=== PATIENT | male | born 1950 ===

== ENCOUNTER 2024-06-19 04:50 | Inpatient (IN) | payer MEDICARE, OTHER ==
--- NOTE | 2024-06-19 05:18 | ERPHSYRPT ---
- History of Present Illness Source: EMS Exam Limitations: other (pt non-verbal) Timing/Duration: day(s) (3) Activities at Onset: none Severity of Dyspnea-Max: mild Severity of Dyspnea-Current: mild Possible Cause: chronic episodes Associated Symptoms: constant, cough, wheezing, No chest pain/discomfort, No ankle swelling, No leg swelling <MAXINE CLARK - Last Filed: 06/19/24 06:55> <JOEY GUZMAN - Last Filed: 06/19/24 09:03> - History of Present Illness Time Seen by Provider: 06/19/24 05:15 Physician History: 73yo m [facility] dysp[facility]. EMS reports jail staff state he has been increasingly sob for the past 3-4d. Pt is minimally verbal at baseline 2/2 hx of multiple strokes. longterm reportedly has concerns for aspiration. Pt will follow commands but is intermittently combative w/ staff. Pt is flaccid on right upper extremity at baseline. Pt communicates minimally w/ grunts/groans but no meaningful speech. (MAXINE CLARK) Allergies/Adverse Reactions: No Known Drug Allergies Allergy (Unverified 06/19/24 05:36) Home Medications: Acetaminophen 500 mg [Tylenol Extra Strength 500 mg] 1,000 mg PO Q6HPRN PRN 06/19/24 [History] Acetaminophen 500 mg [Tylenol Extra Strength 500 mg] 1,000 mg PO Q6HPRN PRN 06/19/24 [History] Allopurinol 100 mg [Zyloprim 100 mg] 100 mg PO DAILY 06/19/24 [History] Bisacodyl [Laxative Suppository] 10 mg RC DAILY PRN 06/19/24 [History] Butenafine HCl 1 applic TP DAILY 06/19/24 [History] Dantrolene Sodium 25 mg PO TID 06/19/24 [History] Docusate Sodium 100 mg [Docusate Sodium 100 MG] 100 mg PO BID 06/19/24 [History] Emollient Combination No.119 [Eucerin Advanced Repair] 1 applic TP BID 06/19/24 [History] Gabapentin 600 mg PO TID 06/19/24 [History] Ketoconazole Cream [Nizoral CREAM] 1 applic TOP UD 06/19/24 [History] LORazepam [Lorazepam] 0.5 mg PO BID 06/19/24 [History] Loperamide HCl 2 mg [Imodium 2 mg] 2 mg PO UD PRN 06/19/24 [History] Magnesium Hydroxide [Milk of Magnesia] 400 mg PO DAILY PRN 06/19/24 [History] Magnesium Oxide 400 mg [Mag-Ox 400] 400 mg PO BID 06/19/24 [History] Melatonin 6 mg PO HS PRN PRN 06/19/24 [History] Metoclopramide HCl 5 mg PO BID 06/19/24 [History] Metoprolol Tartrate 25 mg [Lopressor 25MG Tab] 25 mg PO BID 06/19/24 [Hi story] Ondansetron [Ondansetron Odt] 8 mg PO Q8HPRN PRN 06/19/24 [History] Sodium Phosphate,Candler-Dibasic [Fleet Enema] 133 ml RC DAILY PRN 06/19/24 [History] Tramadol HCl 50 mg [Ultram 50 mg] 50 mg PO Q8HPRN PRN 06/19/24 [History] polyethylene glycoL 3350 [Polyethylene Glycol 3350] 17 gr PO DAILY 06/19/24 [History] - Review of Systems Constitutional: No Symptoms Respiratory: Cough, Dyspnea, Wheezing, No Stridor Cardiac: No Chest Pain, No Edema, No Syncope Abdominal/Gastrointestinal: No Vomiting, No Diarrhea Neurological: Focal Weakness (right UE flaccid at baseline) <MAXINE CLARK - Last Filed: 06/19/24 06:55> - Physical Exam General Appearance: no apparent distress, alert Respiratory Exam: airway intact, diminished breath sounds (b/l), wheezing (b/l upper ), No chest tenderness, No respiratory distress, No crackles/rales, No stridor Cardiovascular/Chest Exam: normal peripheral pulses, other (irregular rate, regular rhythm), No murmur Abdominal/Gastrointestinal Exam: soft, normal bowel sounds, No tenderness, No distention Neurologic Exam: alert, motor deficits (right UE and LE flacid paralysis at baseline), agitation SpO2 Interpretation: normal SpO2: 97 O2 Delivery: Nasal Cannula (3L) <AMBERMAXINE MAGDA - Last Filed: 06/19/24 06:55> - Nursing Vital Signs Nursing Vital Signs: Initial Vital Signs O2 Sat by Pulse Oximetry 92 L 06/19/24 05:01 - Course EKG Interpreted by Me: RATE (58), A-fib, Right Bundle Branch Block, Non-specific ST Changes (not suggestive of acute ischemia) <MAXINE CLARK MAGDA - Last Filed: 06/19/24 06:55> - Course Rhythm Strip: Normal Sinus Rhythm - Radiology Exams Chest X-ray Interpretation: Interpreted by me, Reviewed by me, No Infiltrates (COPD changes) <JOEY GUZMAN - Last Filed: 06/19/24 09:03> Ordered Tests: Active Orders 24 hr Category Date Time Status EKG-ER Only STAT Care 06/19/24 05:15 Active Oxygen-ED Only Nasal Cannula 2 lpm Care 06/19/24 05:15 Active CHEST 1 VIEW (PORTABLE) Stat Exams 06/19/24 05:17 Completed ARTERIAL BLOOD GASES Stat Lab 06/19/24 05:15 Completed BLOOD CULTURE Stat Lab 06/19/24 06:22 Received CBC W DIFF Stat Lab 06/19/24 06:10 Completed CMP Stat Lab 06/19/24 06:10 Completed Lactic Acid Stat Lab 06/19/24 05:15 Completed Lactic Acid Stat Lab 06/19/24 08:09 Received PROCALCITONIN Stat Lab 06/19/24 06:10 Completed TROPONIN Q4H Lab 06/19/24 06:10 Completed TROPONIN Q4H Lab 06/19/24 10:00 Ordered TROPONIN Q4H Lab 06/19/24 14:00 Ordered UA W/RFX UR CULTURE Stat Lab 06/19/24 05:16 Ordered Respiratory Therapy Assessment DAILY RT 06/19/24 06:01 Active Medication Summary Generic Name Dose Route Start Last Admin Trade Name Freq PRN Reason Stop Dose Admin Doxycycline Hyclate 100 mg/ 100 mls @ 100 mls/hr 06/19/24 10:00 06/19/24 07:47 Dextrose IV 07/19/24 09:59 100 mls/hr Q12HT FANNY Administration Lactated Ringer's 1,000 mls @ 999 mls/hr 06/19/24 08:59 Lactated Ringers IV 06/19/24 09:59 .Q1H1M ONE Discontinued Medications Generic Name Dose Route Start Last Admin Trade Name Duq PRN Reason Stop Dose Admin Albuterol/Ipratropium 3 ml 06/19/24 05:15 06/19/24 05:26 Ipratropium/Albuterol Sulfate 3 Ml Ampul.Neb IH 06/19/24 05:16 3 ml STAT ONE Administration Albuterol/Ipratropium Confirm 06/19/24 05:22 Ipratropium/Albuterol Sulfate 3 Ml Ampul.Neb Administered 06/19/24 05:23 Dose 3 ml IH .STK-MED ONE Cefepime HCl Confirm 06/19/24 07:01 Cefepime Hcl 1 Gm Vial Administered 06/19/24 07:02 Dose 1 g .ROUTE .STK-MED ONE Methylprednisolone Sodium 0 mg 06/19/24 05:15 06/19/24 05:39 Succinate 125 mg/ Sterile IV 06/19/24 05:16 125 mg Water 2 ml STAT ONE Administration Doxycycline Hyclate Confirm 06/19/24 07:41 Doxycycline Hyclate 100 Mg/Vial Injection Administered 06/19/24 07:42 Dose 100 mg IV .STK-MED ONE Haloperidol Lactate 2 mg 06/19/24 05:40 06/19/24 05:55 Haloperidol Lactate 5 Mg/Ml Vial IV 06/19/24 05:41 2 mg STAT ONE Administration Haloperidol Lactate Confirm 06/19/24 05:55 Haloperidol Lactate 5 Mg/Ml Vial Administered 06/19/24 05:56 Dose 5 mg .ROUTE .STK-MED ONE Sodium Chloride 1,000 mls @ 999 mls/hr 06/19/24 05:15 06/19/24 07:19 Sodium Chloride 0.9% 1000 Ml IV 06/19/24 06:15 Infused .Q1H1M STA Infusion Acetaminophen 1,000 mg in 100 mls @ 400 mls/hr 06/19/24 05:36 06/19/24 05:39 Ofirmev IV 06/19/24 05:50 400 mls/hr 1HRPRIOR ONE Administration Acetaminophen Confirm 06/19/24 05:38 Ofirmev Administered 06/19/24 05:39 Dose 100 mls @ ud IV .STK-MED ONE Sodium Chloride Confirm 06/19/24 05:38 Sodium Chloride 0.9% 1000 Ml Administered 06/19/24 05:39 Dose 1,000 mls @ ud .ROUTE .STK-MED ONE Cefepime HCl 1 g/ Sodium 100 mls @ 200 mls/hr 06/19/24 06:44 06/19/24 07:02 Chloride IV 06/19/24 07:13 200 mls/hr STAT STA Administration Sodium Chloride Confirm 06/19/24 07:01 Sodium Chloride 0.9% Administered 06/19/24 07:02 Dose 100 mls @ ud .ROUTE .STK-MED ONE Dextrose Confirm 06/19/24 07:41 D5w 100ml Mini Bag 100 Ml Administered 06/19/24 07:42 Dose 100 mls @ ud IV .STK-MED ONE Methylprednisolone Sodium Succinate Confirm 06/19/24 05:38 Methylprednis Sod Succ 125 Mg/2 Ml Vial Administered 06/19/24 05:39 Dose 125 mg .ROUTE .STK-MED ONE Sterile Water Confirm 06/19/24 05:38 Water For Injection,Sterile 10 Ml Vial Administered 06/19/24 05:39 Dose 10 ml IJ .STK-MED ONE Lab/Rad Data: Laboratory Result Diagrams 06/19/24 06:10 06/19/24 06:10 Laboratory Results 06/19/24 06/19/24 06/19/24 Range/Units 06:10 06:10 06:10 WBC (4.23-9.07) x10^3/uL RBC (4.63-6.08) x10^6/uL Hgb (13.7-17.5) g/dL Hct (40.1-51.0) % MCV (79.0-92.2) fL MCH (25.7-32.2) pg MCHC (32.3-36.5) g/dL RDW (11.6-14.4) % Plt Count (163-337) x10^3/uL MPV (9.4-12.4) fL Gran % (34.0-67.9) % Immature Gran % (Auto) (0.001-0.429) % Nucleat RBC Rel Count (0.00-0.2) % Eos # (Auto) (0.04-0.54) x10^3/uL Immature Gran # (Auto) (0.001-0.031) x10^3u/L Absolute Lymphs (auto) (1.32-3.57) x10^3/uL Absolute Monos (auto) (0.30-0.82) x10^3/uL Absolute Nucleated RBC (0.00-0.012) x10^3u/L Lymphocytes % (21.8-53.1) % Monocytes % (5.3-12.2) % Eosinophils % (0.8-7.0) % Basophils % (0.2-1.2) % Absolute Granulocytes (1.78-5.38) x10^3/uL Basophils # (0.01-0.08) x10^3/uL Puncture Site pCO2 (35-45) mmHg pO2 (75-100) mmHg Base Excess (-2.0-2.0) O2 Saturation (94-100) g/dF ABG pH (7.35-7.45) ABG HCO3 (22-28) ABG O2 Sat (Measured) (95-100) % Ozzie Test Hemoglobin Carboxyhemoglobin (0.0-6.9) % THgb Methemoglobin (1.4-1.5) % Potassium (3.5-5.1) Temperature C POC O2 Flow Rate % Sodium (135-145) mmol/L Chloride (98-107) mmol/L Carbon Dioxide (22-30) mmol/L Anion Gap (5-15) MEQ/L BUN (9-20) mg/dL Creatinine (0.66-1.25) mg/dL Estimated GFR ML/MIN Glucose (74-106) mg/dL Lactic Acid (0.4-2.0) Calcium (8.4-10.2) mg/dL Total Bilirubin (0.2-1.3) mg/dL AST (17-59) U/L ALT (0-50) U/L Alkaline Phosphatase (38-126) U/L Troponin I 0.018 (0.000-0.033) ng/mL Serum Total Protein (6.3-8.2) g/dL Albumin (3.5-5.0) g/dL Procalcitonin 23.600 H* (0.030-0.080) ng/mL Influenza Type A Ag NEGATIVE (NEGATIVE) Influenza Type B Ag NEGATIVE (NEGATIVE) RSV (PCR) NEGATIVE (NEGATIVE) SARS-CoV-2 (PCR) NEGATIVE (NEGATIVE) 06/19/24 06/19/24 06/19/24 Range/Units 06:10 06:10 05:15 WBC 8.2 (4.23-9.07) x10^3/uL RBC 3.97 L (4.63-6.08) x10^6/uL Hgb 11.8 L (13.7-17.5) g/dL Hct 37.6 L (40.1-51.0) % MCV 94.7 H (79.0-92.2) fL MCH 29.7 (25.7-32.2) pg MCHC 31.4 L (32.3-36.5) g/dL RDW 14.4 (11.6-14.4) % Plt Count 142 L (163-337) x10^3/uL MPV 11.4 (9.4-12.4) fL Gran % 90.1 H (34.0-67.9) % Immature Gran % (Auto) 0.4 (0.001-0.429) % Nucleat RBC Rel Count 0.0 (0.00-0.2) % Eos # (Auto) 0.05 (0.04-0.54) x10^3/uL Immature Gran # (Auto) 0.03 (0.001-0.031) x10^3u/L Absolute Lymphs (auto) 0.27 L (1.32-3.57) x10^3/uL Absolute Monos (auto) 0.44 (0.30-0.82) x10^3/uL Absolute Nucleated RBC 0.00 (0.00-0.012) x10^3u/L Lymphocytes % 3.3 L (21.8-53.1) % Monocytes % 5.4 (5.3-12.2) % Eosinophils % 0.6 L (0.8-7.0) % Basophils % 0.2 (0.2-1.2) % Absolute Granulocytes 7.35 H (1.78-5.38) x10^3/uL Basophils # 0.02 (0.01-0.08) x10^3/uL Puncture Site LBA pCO2 38 (35-45) mmHg pO2 39 L* (75-100) mmHg Base Excess 4.6 H (-2.0-2.0) O2 Saturation 70.7 L (94-100) g/dF ABG pH 7.48 H (7.35-7.45) ABG HCO3 28.3 H (22-28) ABG O2 Sat (Measured) 75.1 L (95-100) % Ozzie Test yes Hemoglobin 12.4 Carboxyhemoglobin 5.2 (0.0-6.9) % THgb Methemoglobin 0.7 L (1.4-1.5) % Potassium 4.5 4.9 (3.5-5.1) Temperature 37.0 C POC O2 Flow Rate 28 % Sodium 137 (135-145) mmol/L Chloride 103 (98-107) mmol/L Carbon Dioxide 27 (22-30) mmol/L Anion Gap 11.8 (5-15) MEQ/L BUN 32 H (9-20) mg/dL Creatinine 1.32 H (0.66-1.25) mg/dL Estimated GFR 56.6 ML/MIN Glucose 127 H (74-106) mg/dL Lactic Acid 2.2 H (0.4-2.0) Calcium 8.8 (8.4-10.2) mg/dL Total Bilirubin 0.60 (0.2-1.3) mg/dL AST 61 H (17-59) U/L ALT 86 H (0-50) U/L Alkaline Phosphatase 180 H (38-126) U/L Troponin I (0.000-0.033) ng/mL Serum Total Protein 7.1 (6.3-8.2) g/dL Albumin 3.6 (3.5-5.0) g/dL Procalcitonin (0.030-0.080) ng/mL Influenza Type A Ag (NEGATIVE) Influenza Type B Ag (NEGATIVE) RSV (PCR) (NEGATIVE) SARS-CoV-2 (PCR) (NEGATIVE) - Progress Progress: re-examined Air Movement: fair Blood Culture(s) Obtained: Yes <MAXINE CLARK - Last Filed: 06/19/24 06:55> - Progress Antibiotics given: Yes Discussed with DrAdam: Other (Dr Donato) Will see patient in: hospital (full admit) <JOEY GUZMAN - Last Filed: 06/19/24 09:03> - Progress Progress Note: 06/19/24 06:55 I discussed pt presentation w/ Dr Guzman who will assume care at 0700 (MAXINE CLARK) Medical Desision Making - Diagnostic Testing Diagnostic test were ordered, analyzed, and reviewed by me: Yes Radiological Interpretation: Interpreted by me, Reviewed by me <MAXINE CLARK - Last Filed: 06/19/24 06:55> - Risk of complications The pt has a high risk of morbidity or mortality based on: Decision regarding hospitilization or escalation of hosp level of care <JOEY GUZMAN - Last Filed: 06/19/24 09:03> - Departure Critical Care Time: No <MAXINE CLARK - Last Filed: 06/19/24 06:55> - Departure Departure Disposition: In-patient Admission Critical Care Time: Yes Critical Care Time(excluding separately billable procedures): Critical 30-74 mins <JEOY GUZMAN - Last Filed: 06/19/24 09:03> - Departure Clinical Impression: Dyspnea Qualifiers: Dyspnea type: shortness of breath Qualified Code(s): R06.02 - Shortness of breath; R06.00 - Dyspnea, unspecified; R06.01 - Orthopnea Aspiration pneumonia due to gastric secretions Qualifiers: Laterality: unspecified laterality Lung location: unspecified part of lung Qualified Code(s): J69.0 - Pneumonitis due to inhalation of food and vomit Aspiration pneumonia due to food (regurgitated) Qualifiers: Laterality: unspecified laterality Lung location: unspecified part of lung Qualified Code(s): J69.0 - Pneumonitis due to inhalation of food and vomit Condition: Stable Referrals: DOCTOR,NO FAMILY [Primary Care Provider] - Follow up/PCP as directed
[2024-06-19] MEDS ORDERED: DUONEB 0.5-3 MG/3 ml Neb IH ONE (05:22)
[2024-06-19] MEDS: DUONEB 0.5-3 MG/3 ml Neb IH ONE (05:26)
[2024-06-19] MEDS ORDERED: Sodium Chloride 0.9% 1000 ML 1,000 ML ONE (05:38)
[2024-06-19] MEDS ORDERED: Sterile H2O 10 ml IJ ONE (05:38)
[2024-06-19] MEDS ORDERED: OFIRMEV 100 ML IV ONE (05:38)
[2024-06-19] MEDS ORDERED: solu-MEDROL ONE (05:38)
[2024-06-19] MEDS: solu-MEDROL 125 MG, Sterile H2O 10 ml 2 ML IV ONE (05:39)
[2024-06-19] MEDS: OFIRMEV 1,000 MG/100 ML ML IV ONE (05:39)
[2024-06-19] MEDS: Sodium Chloride 0.9% 1000 ML 1,000 ML IV STA (05:40)
[2024-06-19 05:54] LABS: Absolute Neutrophil Ct (ANC) 7.35 x10^3/uL (1.78-5.38); BASOPHIL % 0.2 % (0.2-1.2); Basophil (Absolute #) 0.02 x10^3/uL (0.01-0.08); Eosinophil % 0.6 % (0.8-7.0); Eosinophil (Absolute #) 0.05 x10^3/uL (0.04-0.54); Hematocrit 37.6 % (40.1-51.0); Hemoglobin 11.8 g/dL (13.7-17.5); IMMATURE GRAN # 0.03 x10^3u/L (0.001-0.031); IMMATURE GRAN % 0.4 % (0.001-0.429); Lymphocyte (Absolute #) 0.27 x10^3/uL (1.32-3.57); Lymphocytes % 3.3 % (21.8-53.1); Mean Cell Volume 94.7 fL (79.0-92.2); Mean Corpuscular Hemoglobin 29.7 pg (25.7-32.2); Mean Corpuscular Hgb Concent. 31.4 g/dL (32.3-36.5); Mean Platelet Volume 11.4 fL (9.4-12.4); Monocyte (Absolute #) 0.44 x10^3/uL (0.30-0.82); Monocytes % 5.4 % (5.3-12.2); Neutrophil % 90.1 % (34.0-67.9); Platelet Count 142 x10^3/uL (163-337); Red Blood Count 3.97 x10^6/uL (4.63-6.08); Red Cell Distribution Width 14.4 % (11.6-14.4); White Blood Count 8.2 x10^3/uL (4.23-9.07)
[2024-06-19] MEDS: Haldol 5 MG IV ONE (05:55)
[2024-06-19] MEDS ORDERED: Haldol 5 MG ONE (05:55)
[2024-06-19 06:07] LABS: ABG HEMOGLOBIN 12.4; ABG POTASSIUM 4.9 (3.5-5.1); ARTERIAL BLD GAS O2 SATURATION 75.1 % (95-100); ARTERIAL BLOOD GAS BASE EXCESS 4.6 (-2.0-2.0); ARTERIAL BLOOD GAS FIO2 28 %; ARTERIAL BLOOD GAS PCO2 38 mmHg (35-45); ARTERIAL BLOOD GAS pH 7.48 (7.35-7.45); CARBOXYHEMOGLOBIN 5.2 % THgb (0.0-6.9); HCO3- 28.3 (22-28); HGB O2 SAT 70.7 g/dF (94-100); Lactic Acid 2.2 (0.4-2.0); Methhemoglobin 0.7 % (1.4-1.5)
[2024-06-19 06:08] LABS: ARTERIAL BLOOD GAS PO2 39 mmHg (75-100)
[2024-06-19 06:09] LABS: ABG SITE LBA; ALLEN TEST OK? yes
[2024-06-19 06:17] LABS: ALBUMIN 3.6 g/dL (3.5-5.0); ANION GAP 11.8 MEQ/L (5-15); BILIRUBIN,TOTAL 0.6 mg/dL (0.2-1.3); Calcium 8.8 mg/dL (8.4-10.2); Creatinine 1 1.32 mg/dL (0.66-1.25); EST GLOMERULAR FILTRATION RATE 56.6 ML/MIN; Potassium 4.5 mmol/L (3.5-5.1); Total Protein 7.1 g/dL (6.3-8.2)
[2024-06-19 06:50] LABS: INFLUENZA A NEGATIVE (NEGATIVE); INFLUENZA B NEGATIVE (NEGATIVE); RESPIRATORY SYNCTIAL VIRUS NEGATIVE (NEGATIVE); SARS-CoV-2 Xpert Express NEGATIVE (NEGATIVE)
[2024-06-19] MEDS ORDERED: Sodium Chloride 0.9% 100 ML ONE (07:01)
[2024-06-19] MEDS ORDERED: MAXIPIME 1 GM ONE (07:01)
[2024-06-19] MEDS: MAXIPIME 1 GM** 1 G in Sodium Chloride 0.9% 100 ML IV STA (07:02)
[2024-06-19] MEDS ORDERED: D5w 100ML Mini Bag 100 ML 100 ML IV ONE (07:41)
[2024-06-19] MEDS ORDERED: VIBRAMYCIN 100 MG IV ONE (07:41)
[2024-06-19] MEDS: VIBRAMYCIN 100 MG*** 100 MG in Dextrose 5%/Water IV Soln. 100ML PLUS BAG 100 ML IV SCH ×2 (07:47→22:23)
--- NOTE | 2024-06-19 08:35 | XRAY ---
Indication: Short of breath. Comparison: None Portable chest demonstrates minimal bibasilar subsegmental atelectasis/scarring with mild right hemidiaphragm elevation. No focal infiltrate, consolidation, or large effusion. Heart not enlarged with arteriosclerotic and tortuous descending aorta. Bony thorax intact with osteopenia, mild/moderate multilevel degenerative spondylosis, mild levoscoliosis, and old bilateral rib fractures. Impression: Nonacute chest with chronic features.
[2024-06-19] MEDS ORDERED: Lactated Ringers 1,000 ML IV ONE (09:01)
[2024-06-19] MEDS: Lactated Ringers 1,000 ML IV ONE (09:03)
--- NOTE | 2024-06-19 12:39 | PCM.HP ---
History of Present Illness - Chief Complaint Chief Complaint: ASPIRATION PNEUMONIA Date: 06/19/24 History of Present Illness: is a 73 year old male admitted from local [facility]. The patient is nonverbal. History is obtained from charts and from ER provider. Apparently he was having dyspnea at the [facility]. He has had some cough. He has problems swallowing due to prior stroke. A G-tube was placed but the patient pulled it out multiple times and the POA decided to leave feeding tube out. He has had some hypoxia. No fever. The patient was combative when he came to ER. No other history available. - Review of Systems All Other Systems: Unable due to condition, Unable due to dementia Medications & Allergies Home Medications: Home Medication List Acetaminophen 500 mg [Tylenol Extra Strength 500 mg] 1,000 mg PO Q6HPRN PRN 06/19/24 [History Confirmed 06/19/24] Acetaminophen 500 mg [Tylenol Extra Strength 500 mg] 1,000 mg PO Q6HPRN PRN 06/19/24 [History Confirmed 06/19/24] Allopurinol 100 mg [Zyloprim 100 mg] 100 mg PO DAILY 06/19/24 [History Confirmed 06/19/24] Bisacodyl [Laxative Suppository] 10 mg RC DAILY PRN 06/19/24 [History Confirmed 06/19/24] Butenafine HCl 1 applic TP DAILY 06/19/24 [History Confirmed 06/19/24] Dantrolene Sodium 25 mg PO TID 06/19/24 [History Confirmed 06/19/24] Docusate Sodium 100 mg [Docusate Sodium 100 MG] 100 mg PO BID 06/19/24 [History Confirmed 06/19/24] Emollient Combination No.119 [Eucerin Advanced Repair] 1 applic TP BID 06/19/24 [History Confirmed 06/19/24] Gabapentin 600 mg PO TID 06/19/24 [History Confirmed 06/19/24] Ketoconazole Cream [Nizoral CREAM] 1 applic TOP UD 06/19/24 [History Confirmed 06/19/24] LORazepam [Lorazepam] 0.5 mg PO BID 06/19/24 [History Confirmed 06/19/24] Loperamide HCl 2 mg [Imodium 2 mg] 2 mg PO UD PRN 06/19/24 [History Confirmed 06/19/24] Magnesium Hydroxide [Milk of Magnesia] 400 mg PO DAILY PRN 06/19/24 [History Confirmed 06/19/24] Magnesium Oxide 400 mg [Mag-Ox 400] 400 mg PO BID 06/19/24 [History Confirmed 06/19/24] Melatonin 6 mg PO HS PRN PRN 06/19/24 [History Confirmed 06/19/24] Metoclopramide HCl 5 mg PO BID 06/19/24 [History Confirmed 06/19/24] Metoprolol Tartrate 25 mg [Lopressor 25MG Tab] 25 mg PO BID 06/19/24 [History Confirmed 06/19/24] Ondansetron [Ondansetron Odt] 8 mg PO Q8HPRN PRN 06/19/24 [History Confirmed 06/19/24] Sodium Phosphate,[place]-Dibasic [Fleet Enema] 133 ml RC DAILY PRN 06/19/24 [History Confirmed 06/19/24] Tramadol HCl 50 mg [Ultram 50 mg] 50 mg PO Q8HPRN PRN 06/19/24 [History Confirmed 06/19/24] polyethylene glycoL 3350 [Polyethylene Glycol 3350] 17 gr PO DAILY 06/19/24 [History Confirmed 06/19/24] Allergies/Adverse Reactions: Allergies Allergy/AdvReac Type Severity Reaction Status Date / Time No Known Drug Allergies Allergy Unverified 06/19/24 05:36 - Past Medical History Past Medical History: Yes Neurological History: Stroke Cardiac History: Arrhythmia, Congestive Heart Failure Respiratory History: COPD, Pneumonia, Other Endocrine Medical History: No Pertinent History Musculoskelatal History: Osteoarthritis GI Medical History: No Pertinent History History: Renal Disease Pyscho-Social History: Anxiety Male Reproductive Disorders: No Pertinent History - Past Surgical History Other Surgical History: unknown surgery hx - Social History Smoking Status: Unknown if ever smoked Alcohol: None Drug Use: none - Social Determinants of Health Will the patient participate in the screening: Unable to obtain - Physical Exam Vital Signs: Vital Signs - 24 hr Temp Pulse Resp BP BP Pulse Ox 06/19/24 11:34 98.9 F 74 16 102/61 98 06/19/24 10:33 98.9 F 74 16 102/61 98 06/19/24 10:00 98.9 F 74 16 102/61 98 06/19/24 09:30 70 22 91/55 95 06/19/24 09:00 79 12 80/55 99 06/19/24 08:30 86 13 87/51 99 06/19/24 08:00 81 12 84/51 99 06/19/24 07:39 79 12 84/45 99 06/19/24 07:30 89 12 78/44 99 06/19/24 07:00 100.5 F 85 13 90/49 99 06/19/24 06:56 97 06/19/24 06:34 92 H 13 93/47 98 06/19/24 06:30 55 L 18 81/47 96 06/19/24 06:03 57 L 18 96 06/19/24 06:00 92 H 14 101/54 98 06/19/24 05:30 105 H 16 117/65 98 06/19/24 05:15 103.3 F 64 26 H 101/49 91 L 06/19/24 05:04 81 24 101/49 96 06/19/24 05:03 93 L 06/19/24 05:01 92 L General Appearance: moderate distress Neurologic Exam: other (Drowsy, poorly responsive) Eye Exam: PERRL/EOMI Ears, Nose, Throat Exam: normal ENT inspection Neck Exam: normal inspection, non-tender Respiratory Exam: rhonchi Cardiovascular Exam: regular rate/rhythm, normal heart sounds Gastrointestinal/Abdomen Exam: soft, normal bowel sounds, No tenderness Male Genitalia Exam: normal genitalia Rectal Exam: deferred Back Exam: normal inspection Extremity Exam: normal inspection Skin Exam: normal color Lymphatic Exam: No adenopathy Additional Findings: 06/19/24 12:32 Right Hemiplegia Results - Labs Lab/Micro Results: Lab Results-Last 24 Hours 06/19/24 06/19/24 06/19/24 Range/Units 05:15 06:10 06:10 WBC 8.2 (4.23-9.07) x10^3/uL RBC 3.97 L (4.63-6.08) x10^6/uL Hgb 11.8 L (13.7-17.5) g/dL Hct 37.6 L (40.1-51.0) % MCV 94.7 H (79.0-92.2) fL MCH 29.7 (25.7-32.2) pg MCHC 31.4 L (32.3-36.5) g/dL RDW 14.4 (11.6-14.4) % Plt Count 142 L (163-337) x10^3/uL MPV 11.4 (9.4-12.4) fL Gran % 90.1 H (34.0-67.9) % Immature Gran % (Auto) 0.4 (0.001-0.429) % Nucleat RBC Rel Count 0.0 (0.00-0.2) % Eos # (Auto) 0.05 (0.04-0.54) x10^3/uL Immature Gran # (Auto) 0.03 (0.001-0.031) x10^3u/L Absolute Lymphs (auto) 0.27 L (1.32-3.57) x10^3/uL Absolute Monos (auto) 0.44 (0.30-0.82) x10^3/uL Absolute Nucleated RBC 0.00 (0.00-0.012) x10^3u/L Lymphocytes % 3.3 L (21.8-53.1) % Monocytes % 5.4 (5.3-12.2) % Eosinophils % 0.6 L (0.8-7.0) % Basophils % 0.2 (0.2-1.2) % Absolute Granulocytes 7.35 H (1.78-5.38) x10^3/uL Basophils # 0.02 (0.01-0.08) x10^3/uL Puncture Site LBA pCO2 38 (35-45) mmHg pO2 39 L* (75-100) mmHg Base Excess 4.6 H (-2.0-2.0) O2 Saturation 70.7 L (94-100) g/dF ABG pH 7.48 H (7.35-7.45) ABG HCO3 28.3 H (22-28) ABG O2 Sat (Measured) 75.1 L (95-100) % Ozzie Test yes Hemoglobin 12.4 Carboxyhemoglobin 5.2 (0.0-6.9) % THgb Methemoglobin 0.7 L (1.4-1.5) % Potassium 4.9 4.5 (3.5-5.1) Temperature 37.0 C POC O2 Flow Rate 28 % Sodium 137 (135-145) mmol/L Chloride 103 (98-107) mmol/L Carbon Dioxide 27 (22-30) mmol/L Anion Gap 11.8 (5-15) MEQ/L BUN 32 H (9-20) mg/dL Creatinine 1.32 H (0.66-1.25) mg/dL Estimated GFR 56.6 ML/MIN Glucose 127 H (74-106) mg/dL Lactic Acid 2.2 H (0.4-2.0) Calcium 8.8 (8.4-10.2) mg/dL Total Bilirubin 0.60 (0.2-1.3) mg/dL AST 61 H (17-59) U/L ALT 86 H (0-50) U/L Alkaline Phosphatase 180 H (38-126) U/L Troponin I (0.000-0.033) ng/mL Serum Total Protein 7.1 (6.3-8.2) g/dL Albumin 3.6 (3.5-5.0) g/dL Procalcitonin (0.030-0.080) ng/mL Influenza Type A Ag (NEGATIVE) Influenza Type B Ag (NEGATIVE) RSV (PCR) (NEGATIVE) SARS-CoV-2 (PCR) (NEGATIVE) 06/19/24 06/19/24 06/19/24 Range/Units 06:10 06:10 06:10 WBC (4.23-9.07) x10^3/uL RBC (4.63-6.08) x10^6/uL Hgb (13.7-17.5) g/dL Hct (40.1-51.0) % MCV (79.0-92.2) fL MCH (25.7-32.2) pg MCHC (32.3-36.5) g/dL RDW (11.6-14.4) % Plt Count (163-337) x10^3/uL MPV (9.4-12.4) fL Gran % (34.0-67.9) % Immature Gran % (Auto) (0.001-0.429) % Nucleat RBC Rel Count (0.00-0.2) % Eos # (Auto) (0.04-0.54) x10^3/uL Immature Gran # (Auto) (0.001-0.031) x10^3u/L Absolute Lymphs (auto) (1.32-3.57) x10^3/uL Absolute Monos (auto) (0.30-0.82) x10^3/uL Absolute Nucleated RBC (0.00-0.012) x10^3u/L Lymphocytes % (21.8-53.1) % Monocytes % (5.3-12.2) % Eosinophils % (0.8-7.0) % Basophils % (0.2-1.2) % Absolute Granulocytes (1.78-5.38) x10^3/uL Basophils # (0.01-0.08) x10^3/uL Puncture Site pCO2 (35-45) mmHg pO2 (75-100) mmHg Base Excess (-2.0-2.0) O2 Saturation (94-100) g/dF ABG pH (7.35-7.45) ABG HCO3 (22-28) ABG O2 Sat (Measured) (95-100) % Ozzie Test Hemoglobin Carboxyhemoglobin (0.0-6.9) % THgb Methemoglobin (1.4-1.5) % Potassium (3.5-5.1) Temperature C POC O2 Flow Rate % Sodium (135-145) mmol/L Chloride (98-107) mmol/L Carbon Dioxide (22-30) mmol/L Anion Gap (5-15) MEQ/L BUN (9-20) mg/dL Creatinine (0.66-1.25) mg/dL Estimated GFR ML/MIN Glucose (74-106) mg/dL Lactic Acid (0.4-2.0) Calcium (8.4-10.2) mg/dL Total Bilirubin (0.2-1.3) mg/dL AST (17-59) U/L ALT (0-50) U/L Alkaline Phosphatase (38-126) U/L Troponin I 0.018 (0.000-0.033) ng/mL Serum Total Protein (6.3-8.2) g/dL Albumin (3.5-5.0) g/dL Procalcitonin 23.600 H* (0.030-0.080) ng/mL Influenza Type A Ag NEGATIVE (NEGATIVE) Influenza Type B Ag NEGATIVE (NEGATIVE) RSV (PCR) NEGATIVE (NEGATIVE) SARS-CoV-2 (PCR) NEGATIVE (NEGATIVE) 06/19/24 06/19/24 Range/Units 08:09 10:05 WBC (4.23-9.07) x10^3/uL RBC (4.63-6.08) x10^6/uL Hgb (13.7-17.5) g/dL Hct (40.1-51.0) % MCV (79.0-92.2) fL MCH (25.7-32.2) pg MCHC (32.3-36.5) g/dL RDW (11.6-14.4) % Plt Count (163-337) x10^3/uL MPV (9.4-12.4) fL Gran % (34.0-67.9) % Immature Gran % (Auto) (0.001-0.429) % Nucleat RBC Rel Count (0.00-0.2) % Eos # (Auto) (0.04-0.54) x10^3/uL Immature Gran # (Auto) (0.001-0.031) x10^3u/L Absolute Lymphs (auto) (1.32-3.57) x10^3/uL Absolute Monos (auto) (0.30-0.82) x10^3/uL Absolute Nucleated RBC (0.00-0.012) x10^3u/L Lymphocytes % (21.8-53.1) % Monocytes % (5.3-12.2) % Eosinophils % (0.8-7.0) % Basophils % (0.2-1.2) % Absolute Granulocytes (1.78-5.38) x10^3/uL Basophils # (0.01-0.08) x10^3/uL Puncture Site pCO2 (35-45) mmHg pO2 (75-100) mmHg Base Excess (-2.0-2.0) O2 Saturation (94-100) g/dF ABG pH (7.35-7.45) ABG HCO3 (22-28) ABG O2 Sat (Measured) (95-100) % Ozzie Test Hemoglobin Carboxyhemoglobin (0.0-6.9) % THgb Methemoglobin (1.4-1.5) % Potassium (3.5-5.1) Temperature C POC O2 Flow Rate % Sodium (135-145) mmol/L Chloride (98-107) mmol/L Carbon Dioxide (22-30) mmol/L Anion Gap (5-15) MEQ/L BUN (9-20) mg/dL Creatinine (0.66-1.25) mg/dL Estimated GFR ML/MIN Glucose (74-106) mg/dL Lactic Acid 1.5 (0.4-2.0) Calcium (8.4-10.2) mg/dL Total Bilirubin (0.2-1.3) mg/dL AST (17-59) U/L ALT (0-50) U/L Alkaline Phosphatase (38-126) U/L Troponin I 0.022 (0.000-0.033) ng/mL Serum Total Protein (6.3-8.2) g/dL Albumin (3.5-5.0) g/dL Procalcitonin (0.030-0.080) ng/mL Influenza Type A Ag (NEGATIVE) Influenza Type B Ag (NEGATIVE) RSV (PCR) (NEGATIVE) SARS-CoV-2 (PCR) (NEGATIVE) - Radiology Impressions Radiology Exams & Impressions: Radiology Procedures Category Date Time Status CHEST 1 VIEW (PORTABLE) Stat Exams 06/19/24 05:17 Completed - Other Procedures and Tests Respiratory Therapy 06/19/24 10:10 Oxygen Nasal Cannula 2 lpm Respiratory Therapy Consult ONCE Assessment/Plan (1) Dyspnea Current Visit: Yes Status: Acute Qualifiers: Dyspnea type: shortness of breath Qualified Code(s): R06.02 - Shortness of breath; R06.00 - Dyspnea, unspecified; R06.01 - Orthopnea Assessment & Plan: Dyspnea -Possible aspiration pneumonia -Supplemental oxygen as needed -Note Procal is elevated and lactic acidosis -Cxray negative -Will continue Doxy and Cefepime started in ER History of Stroke -Nonverbal. Right hemiparesis. Problems swallowing Acute Respiratory Failure with Hypoxia -Oxygen as needed UTI -UA suggests UTI -Antibiotics ordered -Lactic Acid si 2.2 History of COPD -Mild wheezing on exam -Plan bronchodilators qid History of CHF -Euvolemic at present Code(s): R06.00 - DYSPNEA, UNSPECIFIED Telemedicine Encounter - Telemedicine Encounter Telemedicine Encounter: "The entirety of this encounter was performed via Telemedicine" This visit was performed using real-time audio and video connection between my location and thepatients locationwith the assistance of a surrogateat the patients location. Written or verbal consent was obtained from the patient/guardian to perform this visit [facility]. Any patient questions regarding the telemedicine interaction were answered.
[2024-06-19 13:34] LABS: Slide Review 1 YES
[2024-06-19] MEDS ORDERED: MEDICATION INTERVENTION MC SCH ×3 (13:45)
[2024-06-19] MEDS ORDERED: DANTROLENE SODIUM 25 MG PO SCH (15:00)
[2024-06-19] MEDS: DUONEB 0.5-3 MG/3 ml Neb IH SCH (15:26)
[2024-06-19] MEDS ORDERED: DUONEB 0.5-3 MG/3 ml Neb IH PRN (16:02)
[2024-06-19 16:03] LABS: Appearance Clear (Clear); Bacteria None Seen /HPF (None Seen); Bilirubin Negative (Negative); Blood Moderate (Negative); Epithelial Cells None Seen /HPF (None Seen); Glucose, Urine Negative (Negative); Ketones Negative (Negative); Leukocyte Esterase Trace (Negative); Nitrite Negative (Negative); Ph 5.5 (4.6-8.0); Protein,Urine Dip Negative (Negative); Specific Gravity 1.015 (1.005-1.030); Urobilinogen 0.2 mg/dL (0.2)
[2024-06-19] MEDS: Ativan 2 MG/1 ML VIAL IV PRN (20:18)
[2024-06-19] MEDS: Docusate Sodium 100 MG PO SCH (21:36)
[2024-06-19] MEDS: Lopressor 25MG Tab PO SCH (21:37)
[2024-06-19] MEDS: Maxipime 2 GM** 2 G in Dextrose 5%/Water IV Soln. 100ML PLUS BAG 100 ML IV SCH (21:44)
[2024-06-19] MEDS ORDERED: Eucerin Lotion (HYDROCERIN) TP SCH (22:00)
[2024-06-19] MEDS ORDERED: Maxipime 2 GM** 2 G in Sodium Chloride 0.9% 100 ML IV SCH (22:00)
[2024-06-19] MEDS ORDERED: MAXIPIME 1 GM** 1 G in Dextrose 5%/Water IV Soln. 100ML PLUS BAG 100 ML IV SCH (22:00)
[2024-06-19] MEDS ORDERED: [UNRECOGNIZED DRUG - REMARK] TP SCH (22:00)
--- NOTE | 2024-06-20 05:13 | PCM.NOTE ---
Date and Time: 06/20/24 0508 Subjective Assessment: is a 73 year old male with a pmhx of stroke (residual dysphagia/non- verbal), copd, chf, OA, and renal disease presented to ED from the nursing facility he resides at with dyspnea. Per nursing facility report patient had prior tube feedings but pulled out tube multiple times until POA decided to have it removed indefinitely. Patient has since been consuming a regular diet at the nursing facility. Upon arrival to ED patient was febrile with Tmax at 103.3, tachypneic, and hypoxic. Lab findings remarkable for UA suspicious for UTI, transaminitis, EMMA, and elevated procal at 23.6. Patient started on Cefepime and doxycycline. Admitted for possible aspiration pneumonia and UTI. Blood culture with gram - rods x 2. 06/10/24: Patient more alert today. Has complaints of a headache. RN called court- appointed JOSE Vora who states she was unaware patient was in the hospital. She also stated she was unaware feeding tube had been removed. Stated she needed to call nursing facility before discussing patient any further. Attempted to reach out again this after with no answer - left message for return call. Patient has been having combative episodes. Speech to evaluate dysphagia and diet recommendations. - Review of Systems All Other Systems: Unable due to condition Objective Exam General Appearance: no apparent distress Neurologic Exam: alert, disoriented, confusion, agitation, aphasia Skin Exam: pale Eye Exam: PERRL Ears, Nose, Throat Exam: normal ENT inspection Neck Exam: normal inspection Cardiovascular Exam: regular rate/rhythm, normal heart sounds Gastrointestinal/Abdomen Exam: soft, normal bowel sounds Extremity Exam: normal inspection Back Exam: normal inspection Male Genitalia Exam: deferred Rectal Exam: deferred Objective Data Vital Signs: Vital Signs - 24 hr Temp Pulse Resp BP BP Pulse Ox 06/20/24 03:00 97.1 F 81 16 140/93 99 06/19/24 23:00 97.1 F 101 H 17 147/98 97 06/19/24 19:30 99 H 20 97 06/19/24 19:00 97.1 F 86 16 149/77 100 06/19/24 15:54 83 20 100 06/19/24 15:43 98.6 F 78 16 136/82 100 06/19/24 11:34 98.9 F 74 16 102/61 98 06/19/24 10:33 98.9 F 74 16 102/61 98 06/19/24 10:00 98.9 F 74 16 102/61 98 06/19/24 09:30 70 22 91/55 95 06/19/24 09:00 79 12 80/55 99 06/19/24 08:30 86 13 87/51 99 06/19/24 08:00 81 12 84/51 99 06/19/24 07:39 79 12 84/45 99 06/19/24 07:30 89 12 78/44 99 06/19/24 07:00 100.5 F 85 13 90/49 99 06/19/24 06:56 97 06/19/24 06:34 92 H 13 93/47 98 06/19/24 06:30 55 L 18 81/47 96 06/19/24 06:03 57 L 18 96 06/19/24 06:00 92 H 14 101/54 98 06/19/24 05:30 105 H 16 117/65 98 06/19/24 05:15 103.3 F 64 26 H 101/49 91 L Intake and Output: Intake & Output 06/17/24 06/18/24 06/19/24 06/20/24 11:59 11:59 11:59 11:59 Intake Total 124 Balance 124 Weight 72.6 kg Lab Results: Lab Results-Last 24 Hours 06/19/24 06/19/24 06/19/24 Range/Units 05:15 06:10 06:10 WBC 8.2 (4.23-9.07) x10^3/uL RBC 3.97 L (4.63-6.08) x10^6/uL Hgb 11.8 L (13.7-17.5) g/dL Hct 37.6 L (40.1-51.0) % MCV 94.7 H (79.0-92.2) fL MCH 29.7 (25.7-32.2) pg MCHC 31.4 L (32.3-36.5) g/dL RDW 14.4 (11.6-14.4) % Plt Count 142 L (163-337) x10^3/uL MPV 11.4 (9.4-12.4) fL Gran % 90.1 H (34.0-67.9) % Immature Gran % (Auto) 0.4 (0.001-0.429) % Nucleat RBC Rel Count 0.0 (0.00-0.2) % Eos # (Auto) 0.05 (0.04-0.54) x10^3/uL Immature Gran # (Auto) 0.03 (0.001-0.031) x10^3u/L Absolute Lymphs (auto) 0.27 L (1.32-3.57) x10^3/uL Absolute Monos (auto) 0.44 (0.30-0.82) x10^3/uL Absolute Nucleated RBC 0.00 (0.00-0.012) x10^3u/L Lymphocytes % 3.3 L (21.8-53.1) % Monocytes % 5.4 (5.3-12.2) % Eosinophils % 0.6 L (0.8-7.0) % Basophils % 0.2 (0.2-1.2) % Absolute Granulocytes 7.35 H (1.78-5.38) x10^3/uL Basophils # 0.02 (0.01-0.08) x10^3/uL Puncture Site LBA pCO2 38 (35-45) mmHg pO2 39 L* (75-100) mmHg Base Excess 4.6 H (-2.0-2.0) O2 Saturation 70.7 L (94-100) g/dF ABG pH 7.48 H (7.35-7.45) ABG HCO3 28.3 H (22-28) ABG O2 Sat (Measured) 75.1 L (95-100) % Ozzie Test yes Hemoglobin 12.4 Carboxyhemoglobin 5.2 (0.0-6.9) % THgb Methemoglobin 0.7 L (1.4-1.5) % Potassium 4.9 4.5 (3.5-5.1) Temperature 37.0 C POC O2 Flow Rate 28 % Sodium 137 (135-145) mmol/L Chloride 103 (98-107) mmol/L Carbon Dioxide 27 (22-30) mmol/L Anion Gap 11.8 (5-15) MEQ/L BUN 32 H (9-20) mg/dL Creatinine 1.32 H (0.66-1.25) mg/dL Estimated GFR 56.6 ML/MIN Glucose 127 H (74-106) mg/dL Lactic Acid 2.2 H (0.4-2.0) Calcium 8.8 (8.4-10.2) mg/dL Total Bilirubin 0.60 (0.2-1.3) mg/dL AST 61 H (17-59) U/L ALT 86 H (0-50) U/L Alkaline Phosphatase 180 H (38-126) U/L Troponin I (0.000-0.033) ng/mL Serum Total Protein 7.1 (6.3-8.2) g/dL Albumin 3.6 (3.5-5.0) g/dL Procalcitonin (0.030-0.080) ng/mL Urine Color (Yellow) Urine Appearance (Clear) Urine pH (4.6-8.0) Ur Specific [place] (1.005-1.030) Urine Protein (Negative) Urine Glucose (UA) (Negative) mg/dL Urine Ketones (Negative) Urine Blood (Negative) Urine Nitrite (Negative) Urine Bilirubin (Negative) Urine Urobilinogen (0.2) mg/dL Ur Leukocyte Esterase (Negative) U Hyaline Cast (Auto) (0-2) /LPF Urine Microscopic RBC (0-5) /HPF Urine Microscopic WBC (0-5) /HPF Ur Epithelial Cells (None Seen) /HPF Urine Bacteria (None Seen) /HPF Urine Culture Reflexed (NO) Influenza Type A Ag (NEGATIVE) Influenza Type B Ag (NEGATIVE) RSV (PCR) (NEGATIVE) SARS-CoV-2 (PCR) (NEGATIVE) Slides for Path Review YES 06/19/24 06/19/24 06/19/24 Range/Units 06:10 06:10 06:10 WBC (4.23-9.07) x10^3/uL RBC (4.63-6.08) x10^6/uL Hgb (13.7-17.5) g/dL Hct (40.1-51.0) % MCV (79.0-92.2) fL MCH (25.7-32.2) pg MCHC (32.3-36.5) g/dL RDW (11.6-14.4) % Plt Count (163-337) x10^3/uL MPV (9.4-12.4) fL Gran % (34.0-67.9) % Immature Gran % (Auto) (0.001-0.429) % Nucleat RBC Rel Count (0.00-0.2) % Eos # (Auto) (0.04-0.54) x10^3/uL Immature Gran # (Auto) (0.001-0.031) x10^3u/L Absolute Lymphs (auto) (1.32-3.57) x10^3/uL Absolute Monos (auto) (0.30-0.82) x10^3/uL Absolute Nucleated RBC (0.00-0.012) x10^3u/L Lymphocytes % (21.8-53.1) % Monocytes % (5.3-12.2) % Eosinophils % (0.8-7.0) % Basophils % (0.2-1.2) % Absolute Granulocytes (1.78-5.38) x10^3/uL Basophils # (0.01-0.08) x10^3/uL Puncture Site pCO2 (35-45) mmHg pO2 (75-100) mmHg Base Excess (-2.0-2.0) O2 Saturation (94-100) g/dF ABG pH (7.35-7.45) ABG HCO3 (22-28) ABG O2 Sat (Measured) (95-100) % Ozzie Test Hemoglobin Carboxyhemoglobin (0.0-6.9) % THgb Methemoglobin (1.4-1.5) % Potassium (3.5-5.1) Temperature C POC O2 Flow Rate % Sodium (135-145) mmol/L Chloride (98-107) mmol/L Carbon Dioxide (22-30) mmol/L Anion Gap (5-15) MEQ/L BUN (9-20) mg/dL Creatinine (0.66-1.25) mg/dL Estimated GFR ML/MIN Glucose (74-106) mg/dL Lactic Acid (0.4-2.0) Calcium (8.4-10.2) mg/dL Total Bilirubin (0.2-1.3) mg/dL AST (17-59) U/L ALT (0-50) U/L Alkaline Phosphatase (38-126) U/L Troponin I 0.018 (0.000-0.033) ng/mL Serum Total Protein (6.3-8.2) g/dL Albumin (3.5-5.0) g/dL Procalcitonin 23.600 H* (0.030-0.080) ng/mL Urine Color (Yellow) Urine Appearance (Clear) Urine pH (4.6-8.0) Ur Specific [place] (1.005-1.030) Urine Protein (Negative) Urine Glucose (UA) (Negative) mg/dL Urine Ketones (Negative) Urine Blood (Negative) Urine Nitrite (Negative) Urine Bilirubin (Negative) Urine Urobilinogen (0.2) mg/dL Ur Leukocyte Esterase (Negative) U Hyaline Cast (Auto) (0-2) /LPF Urine Microscopic RBC (0-5) /HPF Urine Microscopic WBC (0-5) /HPF Ur Epithelial Cells (None Seen) /HPF Urine Bacteria (None Seen) /HPF Urine Culture Reflexed (NO) Influenza Type A Ag NEGATIVE (NEGATIVE) Influenza Type B Ag NEGATIVE (NEGATIVE) RSV (PCR) NEGATIVE (NEGATIVE) SARS-CoV-2 (PCR) NEGATIVE (NEGATIVE) Slides for Path Review 06/19/24 06/19/24 06/19/24 Range/Units 08:09 10:05 13:10 WBC (4.23-9.07) x10^3/uL RBC (4.63-6.08) x10^6/uL Hgb (13.7-17.5) g/dL Hct (40.1-51.0) % MCV (79.0-92.2) fL MCH (25.7-32.2) pg MCHC (32.3-36.5) g/dL RDW (11.6-14.4) % Plt Count (163-337) x10^3/uL MPV (9.4-12.4) fL Gran % (34.0-67.9) % Immature Gran % (Auto) (0.001-0.429) % Nucleat RBC Rel Count (0.00-0.2) % Eos # (Auto) (0.04-0.54) x10^3/uL Immature Gran # (Auto) (0.001-0.031) x10^3u/L Absolute Lymphs (auto) (1.32-3.57) x10^3/uL Absolute Monos (auto) (0.30-0.82) x10^3/uL Absolute Nucleated RBC (0.00-0.012) x10^3u/L Lymphocytes % (21.8-53.1) % Monocytes % (5.3-12.2) % Eosinophils % (0.8-7.0) % Basophils % (0.2-1.2) % Absolute Granulocytes (1.78-5.38) x10^3/uL Basophils # (0.01-0.08) x10^3/uL Puncture Site pCO2 (35-45) mmHg pO2 (75-100) mmHg Base Excess (-2.0-2.0) O2 Saturation (94-100) g/dF ABG pH (7.35-7.45) ABG HCO3 (22-28) ABG O2 Sat (Measured) (95-100) % Ozzie Test Hemoglobin Carboxyhemoglobin (0.0-6.9) % THgb Methemoglobin (1.4-1.5) % Potassium (3.5-5.1) Temperature C POC O2 Flow Rate % Sodium (135-145) mmol/L Chloride (98-107) mmol/L Carbon Dioxide (22-30) mmol/L Anion Gap (5-15) MEQ/L BUN (9-20) mg/dL Creatinine (0.66-1.25) mg/dL Estimated GFR ML/MIN Glucose (74-106) mg/dL Lactic Acid 1.5 (0.4-2.0) Calcium (8.4-10.2) mg/dL Total Bilirubin (0.2-1.3) mg/dL AST (17-59) U/L ALT (0-50) U/L Alkaline Phosphatase (38-126) U/L Troponin I 0.022 0.012 (0.000-0.033) ng/mL Serum Total Protein (6.3-8.2) g/dL Albumin (3.5-5.0) g/dL Procalcitonin (0.030-0.080) ng/mL Urine Color (Yellow) Urine Appearance (Clear) Urine pH (4.6-8.0) Ur Specific [place] (1.005-1.030) Urine Protein (Negative) Urine Glucose (UA) (Negative) mg/dL Urine Ketones (Negative) Urine Blood (Negative) Urine Nitrite (Negative) Urine Bilirubin (Negative) Urine Urobilinogen (0.2) mg/dL Ur Leukocyte Esterase (Negative) U Hyaline Cast (Auto) (0-2) /LPF Urine Microscopic RBC (0-5) /HPF Urine Microscopic WBC (0-5) /HPF Ur Epithelial Cells (None Seen) /HPF Urine Bacteria (None Seen) /HPF Urine Culture Reflexed (NO) Influenza Type A Ag (NEGATIVE) Influenza Type B Ag (NEGATIVE) RSV (PCR) (NEGATIVE) SARS-CoV-2 (PCR) (NEGATIVE) Slides for Path Review 06/19/24 06/19/24 Range/Units 14:15 15:48 WBC (4.23-9.07) x10^3/uL RBC (4.63-6.08) x10^6/uL Hgb (13.7-17.5) g/dL Hct (40.1-51.0) % MCV (79.0-92.2) fL MCH (25.7-32.2) pg MCHC (32.3-36.5) g/dL RDW (11.6-14.4) % Plt Count (163-337) x10^3/uL MPV (9.4-12.4) fL Gran % (34.0-67.9) % Immature Gran % (Auto) (0.001-0.429) % Nucleat RBC Rel Count (0.00-0.2) % Eos # (Auto) (0.04-0.54) x10^3/uL Immature Gran # (Auto) (0.001-0.031) x10^3u/L Absolute Lymphs (auto) (1.32-3.57) x10^3/uL Absolute Monos (auto) (0.30-0.82) x10^3/uL Absolute Nucleated RBC (0.00-0.012) x10^3u/L Lymphocytes % (21.8-53.1) % Monocytes % (5.3-12.2) % Eosinophils % (0.8-7.0) % Basophils % (0.2-1.2) % Absolute Granulocytes (1.78-5.38) x10^3/uL Basophils # (0.01-0.08) x10^3/uL Puncture Site pCO2 (35-45) mmHg pO2 (75-100) mmHg Base Excess (-2.0-2.0) O2 Saturation (94-100) g/dF ABG pH (7.35-7.45) ABG HCO3 (22-28) ABG O2 Sat (Measured) (95-100) % Ozzie Test Hemoglobin Carboxyhemoglobin (0.0-6.9) % THgb Methemoglobin (1.4-1.5) % Potassium (3.5-5.1) Temperature C POC O2 Flow Rate % Sodium (135-145) mmol/L Chloride (98-107) mmol/L Carbon Dioxide (22-30) mmol/L Anion Gap (5-15) MEQ/L BUN (9-20) mg/dL Creatinine (0.66-1.25) mg/dL Estimated GFR ML/MIN Glucose (74-106) mg/dL Lactic Acid 1.2 (0.4-2.0) Calcium (8.4-10.2) mg/dL Total Bilirubin (0.2-1.3) mg/dL AST (17-59) U/L ALT (0-50) U/L Alkaline Phosphatase (38-126) U/L Troponin I (0.000-0.033) ng/mL Serum Total Protein (6.3-8.2) g/dL Albumin (3.5-5.0) g/dL Procalcitonin (0.030-0.080) ng/mL Urine Color Yellow (Yellow) Urine Appearance Clear (Clear) Urine pH 5.5 (4.6-8.0) Ur Specific [place] 1.015 (1.005-1.030) Urine Protein Negative (Negative) Urine Glucose (UA) Negative (Negative) mg/dL Urine Ketones Negative (Negative) Urine Blood Moderate A (Negative) Urine Nitrite Negative (Negative) Urine Bilirubin Negative (Negative) Urine Urobilinogen 0.2 (0.2) mg/dL Ur Leukocyte Esterase Trace A (Negative) U Hyaline Cast (Auto) 3-5 A (0-2) /LPF Urine Microscopic RBC 3-5 (0-5) /HPF Urine Microscopic WBC 6-10 A (0-5) /HPF Ur Epithelial Cells None Seen (None Seen) /HPF Urine Bacteria None Seen (None Seen) /HPF Urine Culture Reflexed YES (NO) Influenza Type A Ag (NEGATIVE) Influenza Type B Ag (NEGATIVE) RSV (PCR) (NEGATIVE) SARS-CoV-2 (PCR) (NEGATIVE) Slides for Path Review Radiology Exams: Radiology Procedures Category Date Time Status CHEST 1 VIEW (PORTABLE) Stat Exams 06/19/24 05:17 Completed Assessment/Plan (1) Bacteremia Current Visit: Yes Status: Acute Assessment & Plan: -Blood cultures x 2 pre-adam stain with gram negative rods - continue cefepime and doxy - follow culture -Procal 23.600 Code(s): R78.81 - BACTEREMIA (2) Dyspnea Current Visit: Yes Status: Acute Qualifiers: Dyspnea type: shortness of breath Qualified Code(s): R06.02 - Shortness of breath; R06.00 - Dyspnea, unspecified; R06.01 - Orthopnea Assessment & Plan: -Possible aspiration pneumonia -Procal is elevated and lactic acidosis -Cxray reviewed and negative for acute etiology -WBC reviewed and wnl -Blood cultures with gram negative rods - final pending -consider CT chest -Supplemental oxygen as needed -Doxy and Cefepime started in ER - will continue Code(s): R06.00 - DYSPNEA, UNSPECIFIED (3) Acute respiratory failure with hypoxia Current Visit: Yes Status: Acute Assessment & Plan: -see dyspnea above -Oxygen as needed -RT to follow -? aspiration pneumonia - continue abx Code(s): J96.01 - ACUTE RESPIRATORY FAILURE WITH HYPOXIA (4) UTI (urinary tract infection) Current Visit: Yes Status: Acute Assessment & Plan: -UA suggests UTI continue doxy/cefepime - follow cultures -NGTd -Lactic Acid reviewed 1.2<1.5<2.2 Code(s): N39.0 - URINARY TRACT INFECTION, SITE NOT SPECIFIED (5) Aspiration pneumonia due to food (regurgitated) Current Visit: Yes Status: Acute Qualifiers: Laterality: unspecified laterality Lung location: unspecified part of lung Qualified Code(s): J69.0 - Pneumonitis due to inhalation of food and vomit Assessment & Plan: -h/o feeding tube placement due to aspiration -has been removed due to pt taking it out multiple times -POA contacted awaiting call back -see dyspnea for plan -Pt currently NPO -Speech eval today for diet recommendations Code(s): J69.0 - PNEUMONITIS DUE TO INHALATION OF FOOD AND VOMIT (6) History of stroke with current residual effects Current Visit: Yes Status: Acute Assessment & Plan: -Nonverbal -Residual right hemiparesis and dysphagia -h/o feeding tube- pulled out multiple times- now removed indefinitely Code(s): I69.30 - UNSPECIFIED SEQUELAE OF CEREBRAL INFARCTION (7) History of COPD Current Visit: Yes Status: Acute Assessment & Plan: -CXR negative for acute findings -Supplemental oxygen with goal spo2 > 91% -RT to follow -Plan bronchodilators qid Code(s): Z87.09 - PERSONAL HISTORY OF OTHER DISEASES OF THE RESPIRATORY SYSTEM (8) History of CHF (congestive heart failure) Current Visit: Yes Status: Acute Assessment & Plan: -Euvolemic at present Code(s): Z86.79 - PERSONAL HISTORY OF OTHER DISEASES OF THE CIRCULATORY SYSTEM
[2024-06-20] MEDS: FEVERALL 650 MG PR PRN (09:03)
[2024-06-20] MEDS ORDERED: BUTENAFINE HCL TP SCH (10:00)
[2024-06-20] MEDS: ENOXAPARIN SODIUM SQ SCH (10:22)
[2024-06-20] MEDS: MORPHINE SULFATE 2 MG INJ IV PRN (14:06)
[2024-06-20] MEDS: Ativan 2 MG/1 ML VIAL IV PRN (17:11)
[2024-06-20] MEDS: Sodium Chloride 0.9% 1000 ML 1,000 ML IV SCH (17:53)
--- NOTE | 2024-06-21 05:16 | PCM.NOTE ---
Date and Time: 06/21/24 0515 Subjective Assessment: is a 73 year old male with a pmhx of stroke (residual dysphagia/non- verbal), copd, chf, OA, and renal disease presented to ED from the nursing facility he resides at with dyspnea. Per nursing facility report patient had prior tube feedings but pulled out tube multiple times until POA decided to have it removed indefinitely. Patient has since been consuming a regular diet at the nursing facility. Upon arrival to ED patient was febrile with Tmax at 103.3, tachypneic, and hypoxic. Lab findings remarkable for UA suspicious for UTI, transaminitis, EMMA, and elevated procal at 23.6. Patient started on Cefepime and doxycycline. Admitted for possible aspiration pneumonia and UTI. Blood culture with gram - rods x 2. 06/10/24: Patient more alert today. Has complaints of a headache. RN called court- appointed JOSE Vora who states she was unaware patient was in the hospital. She also stated she was unaware feeding tube had been removed. Stated she needed to call nursing facility before discussing patient any further. Attempted to reach out again this after with no answer - left message for return call. Patient has been having combative episodes. Speech to evaluate dysphagia and diet recommendations. 06/21: Patient with increased alertness and communication today. He has been able to an swer some questions with yes/no responses. He points to his head and elma-area and grimaces. When asked if he has pain in these areas he says yes. When asked if headache has improved he says yes. Discussed feeding tube with patient which he says no to. He is agreeable to barium swallow to evaluate his dysphagia. Will attempt communication board with patient. He seems to understand what is being communicated to him. POA and senior care unable to provide baseline mentation information. - Review of Systems Genitourinary Symptoms: Other (elma- area pain ) Neurological: Headache All Other Systems: Unable due to condition Objective Exam General Appearance: no apparent distress Neurologic Exam: alert, cooperative Skin Exam: normal color Eye Exam: PERRL Ears, Nose, Throat Exam: normal ENT inspection Neck Exam: normal inspection Respiratory Exam: normal breath sounds, lungs clear Cardiovascular Exam: regular rate/rhythm, normal heart sounds Gastrointestinal/Abdomen Exam: soft, normal bowel sounds Extremity Exam: limited range of motion Back Exam: normal inspection Male Genitalia Exam: normal genitalia Rectal Exam: deferred Objective Data Vital Signs: Vital Signs - 24 hr Temp Pulse Resp BP BP Pulse Ox 06/21/24 04:30 96.8 F 61 20 130/63 93 L 06/20/24 23:00 97.3 F 87 17 166/76 97 06/20/24 19:50 54 L 20 95 06/20/24 19:00 97.5 F 68 17 128/76 92 L 06/20/24 17:11 78 14 137/78 06/20/24 15:00 97.9 F 107 H 20 135/80 97 06/20/24 12:03 59 L 16 137/78 06/20/24 11:00 97.6 F 58 L 16 137/78 97 06/20/24 07:00 97.9 F 115 H 22 160/98 98 06/20/24 06:57 80 18 98 Pain Assessment - Last Documented Pain Scale Used FLACC Intake and Output: Intake & Output 06/18/24 06/19/24 06/20/24 06/21/24 11:59 11:59 11:59 11:59 Intake Total 184 Balance 184 Weight 72.6 kg Lab Results: Lab Results-Last 24 Hours 06/20/24 06/20/24 06/20/24 Range/Units 15:36 20:21 23:37 POC Glucometer 93 88 96 (74 to 106) mg/dL Hemoglobin A1c (4.5-6.0) % 06/20/24 Range/Units Unknown POC Glucometer (74 to 106) mg/dL Hemoglobin A1c 5.18 (4.5-6.0) % Radiology Exams: Radiology Procedures Category Date Time Status CHEST 1 VIEW (PORTABLE) Stat Exams 06/19/24 05:17 Completed MODIFIED BARIUM SWALLOW EXAM Routine Exams 06/21/24 16:28 Ordered Multi-Disciplinary Progress Notes: Multi-Disciplinary Progress Notes 06/20/24 15:43 Case Management Note by Karen Keyes/[facility] AT [facility]- SHE REPORTS PATIENT IS A [facility] RESIDENT AND CAN RETURN WHEN MEDICALLY READY, NO PRECERT NEEDED Initialized on 06/20/24 15:43 - END OF NOTE Assessment/Plan (1) Bacteremia Current Visit: Yes Status: Acute Assessment & Plan: -Blood cultures x 2 pre-adam stain with gram negative rods - continue cefepime and doxy - follow culture -Procal 23.600 repeat 23.600 Code(s): R78.81 - BACTEREMIA (2) Dyspnea Current Visit: Yes Status: Acute Qualifiers: Dyspnea type: shortness of breath Qualified Code(s): R06.02 - Shortness of breath; R06.00 - Dyspnea, unspecified; R06.01 - Orthopnea Assessment & Plan: -Possible aspiration pneumonia -Procal is elevated and lactic acidosis -Cxray reviewed and negative for acute etiology -WBC reviewed and wnl -Blood cultures with gram negative rods - final pending -consider CT chest -Supplemental oxygen as needed -Doxy and Cefepime started in ER - will continue 06/21: -Lung sounds clear - on RA Code(s): R06.00 - DYSPNEA, UNSPECIFIED (3) Acute respiratory failure with hypoxia Current Visit: Yes Status: Acute Assessment & Plan: -see dyspnea above -Oxygen as needed -RT to follow -? aspiration pneumonia - continue abx Code(s): J96.01 - ACUTE RESPIRATORY FAILURE WITH HYPOXIA (4) UTI (urinary tract infection) Current Visit: Yes Status: Acute Assessment & Plan: -UA suggests UTI continue doxy/cefepime - follow cultures -NGTd -Lactic Acid reviewed 1.2<1.5<2.2 Code(s): N39.0 - URINARY TRACT INFECTION, SITE NOT SPECIFIED (5) Aspiration pneumonia due to food (regurgitated) Current Visit: Yes Status: Acute Qualifiers: Laterality: unspecified laterality Lung location: unspecified part of lung Qualified Code(s): J69.0 - Pneumonitis due to inhalation of food and vomit Assessment & Plan: -h/o feeding tube placement due to aspiration -has been removed due to pt taking it out multiple times -POA contacted awaiting call back -see dyspnea for plan -Pt currently NPO -Speech eval today for diet recommendations 06/21: -Plan for barium swallow and speech eval - recommendation for NPO until barium is completed -continue IVF Code(s): J69.0 - PNEUMONITIS DUE TO INHALATION OF FOOD AND VOMIT (6) History of stroke with current residual effects Current Visit: Yes Status: Acute Assessment & Plan: -Nonverbal -Residual right hemiparesis and dysphagia -h/o feeding tube- pulled out multiple times- now removed indefinitely 06/21: -Attempt communication board Code(s): I69.30 - UNSPECIFIED SEQUELAE OF CEREBRAL INFARCTION (7) History of COPD Current Visit: Yes Status: Acute Assessment & Plan: -CXR negative for acute findings -Supplemental oxygen with goal spo2 > 91% -RT to follow -Plan bronchodilators qid Code(s): Z87.09 - PERSONAL HISTORY OF OTHER DISEASES OF THE RESPIRATORY SYSTEM (8) History of CHF (congestive heart failure) Current Visit: Yes Status: Acute Assessment & Plan: -Euvolemic at present Code(s): R78.81 - BACTEREMIA (2) Dyspnea Current Visit: Yes Status: Acute Qualifiers: Dyspnea type: shortness of breath Qualified Code(s): R06.02 - Shortness of breath; R06.00 - Dyspnea, unspecified; R06.01 - Orthopnea Code(s): R06.00 - DYSPNEA, UNSPECIFIED (3) Acute respiratory failure with hypoxia Current Visit: Yes Status: Acute Code(s): J96.01 - ACUTE RESPIRATORY FAILURE WITH HYPOXIA (4) UTI (urinary tract infection) Current Visit: Yes Status: Acute Code(s): N39.0 - URINARY TRACT INFECTION, SITE NOT SPECIFIED (5) Aspiration pneumonia due to food (regurgitated) Current Visit: Yes Status: Acute Qualifiers: Laterality: unspecified laterality Lung location: unspecified part of lung Qualified Code(s): J69.0 - Pneumonitis due to inhalation of food and vomit Code(s): J69.0 - PNEUMONITIS DUE TO INHALATION OF FOOD AND VOMIT (6) History of stroke with current residual effects Current Visit: Yes Status: Acute Code(s): I69.30 - UNSPECIFIED SEQUELAE OF CEREBRAL INFARCTION (7) History of COPD Current Visit: Yes Status: Acute Code(s): Z87.09 - PERSONAL HISTORY OF OTHER DISEASES OF THE RESPIRATORY SYSTEM (8) History of CHF (congestive heart failure) Current Visit: Yes Status: Acute Code(s): Z86.79 - PERSONAL HISTORY OF OTHER DISEASES OF THE CIRCULATORY SYSTEM
[2024-06-21 05:25] LABS: Absolute Neutrophil Ct (ANC) 6.68 x10^3/uL (1.78-5.38); BASOPHIL % 0.1 % (0.2-1.2); Basophil (Absolute #) 0.01 x10^3/uL (0.01-0.08); Eosinophil % 0.1 % (0.8-7.0); Eosinophil (Absolute #) 0.01 x10^3/uL (0.04-0.54); Hematocrit 33.9 % (40.1-51.0); IMMATURE GRAN # 0.02 x10^3u/L (0.001-0.031); IMMATURE GRAN % 0.3 % (0.001-0.429); Lymphocytes % 8.9 % (21.8-53.1); Mean Cell Volume 93.1 fL (79.0-92.2); Mean Corpuscular Hemoglobin 30.2 pg (25.7-32.2); Mean Corpuscular Hgb Concent. 32.4 g/dL (32.3-36.5); Mean Platelet Volume 12.3 fL (9.4-12.4); Monocyte (Absolute #) 0.42 x10^3/uL (0.30-0.82); Monocytes % 5.4 % (5.3-12.2); Neutrophil % 85.2 % (34.0-67.9); Platelet Count 140 x10^3/uL (163-337); Red Blood Count 3.64 x10^6/uL (4.63-6.08); Red Cell Distribution Width 14.7 % (11.6-14.4); White Blood Count 7.8 x10^3/uL (4.23-9.07)
[2024-06-21 05:44] LABS: ALBUMIN 3.1 g/dL (3.5-5.0); BILIRUBIN,TOTAL 0.4 mg/dL (0.2-1.3); Calcium 8.2 mg/dL (8.4-10.2); Creatinine 1 0.86 mg/dL (0.66-1.25); EST GLOMERULAR FILTRATION RATE 90.9 ML/MIN; Potassium 3.5 mmol/L (3.5-5.1); Total Protein 6.6 g/dL (6.3-8.2)
[2024-06-21] MEDS: Nizoral CREAM TOP SCH (11:12)
--- NOTE | 2024-06-21 11:39 | XRAY ---
Indication: Dysphagia. Modified barium swallow study performed by the Department of speech therapy with fluoroscopic assistance provided. Patient ingested multiple consistencies of liquids and solids. Full report and recommendations will be reported separately. 1 minute 11 seconds fluoroscopy used.
[2024-06-21 12:39] LABS: Appearance Clear (Clear); Bacteria None Seen /HPF (None Seen); Bilirubin Negative (Negative); Blood Negative (Negative); Epithelial Cells None Seen /HPF (None Seen); Glucose, Urine Negative (Negative); Hyaline Casts NONE SEEN /LPF (0-2); Ketones Negative (Negative); Leukocyte Esterase Negative (Negative); Nitrite Negative (Negative); Ph 6.5 (4.6-8.0); Protein,Urine Dip Negative (Negative); Urobilinogen 0.2 mg/dL (0.2); WBC 0-2 /HPF (0-5)
[2024-06-22 06:26] LABS: Absolute Neutrophil Ct (ANC) 4.37 x10^3/uL (1.78-5.38); BASOPHIL % 0.5 % (0.2-1.2); Hematocrit 39.6 % (40.1-51.0); IMMATURE GRAN % 0.5 % (0.001-0.429); Lymphocyte (Absolute #) 0.98 x10^3/uL (1.32-3.57); Lymphocytes % 16.3 % (21.8-53.1); Mean Cell Volume 97.5 fL (79.0-92.2); Mean Corpuscular Hemoglobin 29.6 pg (25.7-32.2); Mean Corpuscular Hgb Concent. 30.3 g/dL (32.3-36.5); Mean Platelet Volume 12.1 fL (9.4-12.4); Monocyte (Absolute #) 0.55 x10^3/uL (0.30-0.82); Monocytes % 9.1 % (5.3-12.2); Neutrophil % 72.6 % (34.0-67.9); Platelet Count 137 x10^3/uL (163-337); Red Blood Count 4.06 x10^6/uL (4.63-6.08); Red Cell Distribution Width 14.6 % (11.6-14.4)
[2024-06-22 06:27] LABS: Basophil (Absolute #) 0.03 x10^3/uL (0.01-0.08); Eosinophil (Absolute #) 0.06 x10^3/uL (0.04-0.54); IMMATURE GRAN # 0.03 x10^3u/L (0.001-0.031)
--- NOTE | 2024-06-22 06:39 | TM.IN ---
Tele-Medicine Incident Note - Incident Note Tel-Medicine Incident Note: Notified of patient's blood culture results;4 of 4 bottles positive for ESBL E coli. Patient currently on Doxy and Cefepime for aspiration pneumonia and possible UTI. Will d/c doxy and cefepime, and start patient on Merrem 1 g IV q8h. J Luis Mendez MD Telemedicine Hospitalist [facility] Telemedicine Encounter - Telemedicine Encounter Telemedicine Encounter: "The entirety of this encounter was performed via Telemedicine" This visit was performed using real-time audio and video connection between my location and thepatients locationwith the assistance of a surrogateat the patients location. Written or verbal consent was obtained from the patient/guardian to perform this visit [facility] technology. Any patient questions regarding the telemedicine interaction were answered.
[2024-06-22 06:50] LABS: ALBUMIN 3.2 g/dL (3.5-5.0); ANION GAP 9.7 MEQ/L (5-15); BILIRUBIN,TOTAL 0.6 mg/dL (0.2-1.3); Calcium 8.4 mg/dL (8.4-10.2); Creatinine 1 0.81 mg/dL (0.66-1.25); EST GLOMERULAR FILTRATION RATE 92.5 ML/MIN; Potassium 3.4 mmol/L (3.5-5.1); Total Protein 6.9 g/dL (6.3-8.2)
[2024-06-22] MEDS: Merrem 1 GM in Sodium Chloride 100ML MINI-BAG PLUS 100 ML IV SCH (08:06)
[2024-06-22 09:22] LABS: Slide Review 1 YES
--- NOTE | 2024-06-22 11:35 | PCM.NOTE ---
Date and Time: 06/22/241127 Subjective Assessment: Patient has severe expressive aphasia but can communicate yes and no. Does not seem to have pain. He passed swallow study but does choke a little on liquids. No dyspnea. No new complaints. - Review of Systems All Other Systems: Unable due to condition Objective Exam General Appearance: no apparent distress Neurologic Exam: alert, cooperative Skin Exam: normal color, warm, dry Eye Exam: PERRL, EOMI Ears, Nose, Throat Exam: normal ENT inspection Neck Exam: normal inspection, non-tender, supple Lymphatic Exam: No adenopathy Respiratory Exam: normal breath sounds Cardiovascular Exam: regular rate/rhythm, normal heart sounds Gastrointestinal/Abdomen Exam: soft, normal bowel sounds, No tenderness, No distention Extremity Exam: normal inspection Back Exam: normal inspection Male Genitalia Exam: deferred Rectal Exam: deferred Objective Data Vital Signs: Vital Signs - 24 hr Temp Pulse Resp BP BP Pulse Ox 06/22/24 07:26 50 L 16 94 L 06/22/24 07:20 96.8 F 61 20 170/80 95 06/22/24 04:00 96.8 F 47 L 20 145/93 96 06/22/24 00:00 97.1 F 78 20 148/85 94 L 06/21/24 20:00 97.1 F 65 20 188/84 96 06/21/24 18:49 62 18 96 06/21/24 17:30 68 20 06/21/24 16:00 98.8 F 86 20 156/94 95 06/21/24 12:00 97.9 F 65 22 145/76 94 L 06/21/24 11:44 62 22 145/76 Pain Assessment - Last Documented Pain Intensity 6 Pain Scale Used FLACC Intake and Output: Intake & Output 06/19/24 06/20/24 06/21/24 06/22/24 11:59 11:59 11:59 11:59 Intake Total 184 1481 2575 Balance 184 1481 2575 Weight 72.6 kg 72.6 kg Lab Results: Lab Results-Last 24 Hours 06/21/24 06/21/24 06/22/24 Range/Units 11:57 11:59 05:45 WBC 6.0 (4.23-9.07) x10^3/uL RBC 4.06 L (4.63-6.08) x10^6/uL Hgb 12.0 L (13.7-17.5) g/dL Hct 39.6 L (40.1-51.0) % MCV 97.5 H (79.0-92.2) fL MCH 29.6 (25.7-32.2) pg MCHC 30.3 L (32.3-36.5) g/dL RDW 14.6 H (11.6-14.4) % Plt Count 137 L (163-337) x10^3/uL MPV 12.1 (9.4-12.4) fL Gran % 72.6 H (34.0-67.9) % Immature Gran % (Auto) 0.5 H (0.001-0.429) % Nucleat RBC Rel Count 0.0 (0.00-0.2) % Eos # (Auto) 0.06 (0.04-0.54) x10^3/uL Immature Gran # (Auto) 0.03 (0.001-0.031) x10^3u/L Absolute Lymphs (auto) 0.98 L (1.32-3.57) x10^3/uL Absolute Monos (auto) 0.55 (0.30-0.82) x10^3/uL Absolute Nucleated RBC 0.00 (0.00-0.012) x10^3u/L Lymphocytes % 16.3 L (21.8-53.1) % Monocytes % 9.1 (5.3-12.2) % Eosinophils % 1.0 (0.8-7.0) % Basophils % 0.5 (0.2-1.2) % Absolute Granulocytes 4.37 (1.78-5.38) x10^3/uL Basophils # 0.03 (0.01-0.08) x10^3/uL Sodium (135-145) mmol/L Potassium (3.5-5.1) mmol/L Chloride (98-107) mmol/L Carbon Dioxide (22-30) mmol/L Anion Gap (5-15) MEQ/L BUN (9-20) mg/dL Creatinine (0.66-1.25) mg/dL Estimated GFR ML/MIN Glucose (74-106) mg/dL POC Glucometer 95 (74 to 106) mg/dL Calcium (8.4-10.2) mg/dL Total Bilirubin (0.2-1.3) mg/dL AST (17-59) U/L ALT (0-50) U/L Alkaline Phosphatase (38-126) U/L Serum Total Protein (6.3-8.2) g/dL Albumin (3.5-5.0) g/dL Procalcitonin (0.030-0.080) ng/mL Urine Color Yellow (Yellow) Urine Appearance Clear (Clear) Urine pH 6.5 (4.6-8.0) Ur Specific [place] 1.010 (1.005-1.030) Urine Protein Negative (Negative) Urine Glucose (UA) Negative (Negative) mg/dL Urine Ketones Negative (Negative) Urine Blood Negative (Negative) Urine Nitrite Negative (Negative) Urine Bilirubin Negative (Negative) Urine Urobilinogen 0.2 (0.2) mg/dL Ur Leukocyte Esterase Negative (Negative) U Hyaline Cast (Auto) NONE SEEN (0-2) /LPF Urine Microscopic RBC 6-10 A (0-5) /HPF Urine Microscopic WBC 0-2 (0-5) /HPF Ur Epithelial Cells None Seen (None Seen) /HPF Urine Bacteria None Seen (None Seen) /HPF Urine Culture Reflexed ORDERED SEPARATELY (NO) Slides for Path Review YES 06/22/24 06/22/24 Range/Units 05:45 05:45 WBC (4.23-9.07) x10^3/uL RBC (4.63-6.08) x10^6/uL Hgb (13.7-17.5) g/dL Hct (40.1-51.0) % MCV (79.0-92.2) fL MCH (25.7-32.2) pg MCHC (32.3-36.5) g/dL RDW (11.6-14.4) % Plt Count (163-337) x10^3/uL MPV (9.4-12.4) fL Gran % (34.0-67.9) % Immature Gran % (Auto) (0.001-0.429) % Nucleat RBC Rel Count (0.00-0.2) % Eos # (Auto) (0.04-0.54) x10^3/uL Immature Gran # (Auto) (0.001-0.031) x10^3u/L Absolute Lymphs (auto) (1.32-3.57) x10^3/uL Absolute Monos (auto) (0.30-0.82) x10^3/uL Absolute Nucleated RBC (0.00-0.012) x10^3u/L Lymphocytes % (21.8-53.1) % Monocytes % (5.3-12.2) % Eosinophils % (0.8-7.0) % Basophils % (0.2-1.2) % Absolute Granulocytes (1.78-5.38) x10^3/uL Basophils # (0.01-0.08) x10^3/uL Sodium 140 (135-145) mmol/L Potassium 3.4 L (3.5-5.1) mmol/L Chloride 107 (98-107) mmol/L Carbon Dioxide 27 (22-30) mmol/L Anion Gap 9.7 (5-15) MEQ/L BUN 17 (9-20) mg/dL Creatinine 0.81 (0.66-1.25) mg/dL Estimated GFR 92.5 ML/MIN Glucose 84 (74-106) mg/dL POC Glucometer (74 to 106) mg/dL Calcium 8.4 (8.4-10.2) mg/dL Total Bilirubin 0.60 (0.2-1.3) mg/dL AST 26 (17-59) U/L ALT 33 (0-50) U/L Alkaline Phosphatase 108 (38-126) U/L Serum Total Protein 6.9 (6.3-8.2) g/dL Albumin 3.2 L (3.5-5.0) g/dL Procalcitonin 10.800 H* (0.030-0.080) ng/mL Urine Color (Yellow) Urine Appearance (Clear) Urine pH (4.6-8.0) Ur Specific [place] (1.005-1.030) Urine Protein (Negative) Urine Glucose (UA) (Negative) mg/dL Urine Ketones (Negative) Urine Blood (Negative) Urine Nitrite (Negative) Urine Bilirubin (Negative) Urine Urobilinogen (0.2) mg/dL Ur Leukocyte Esterase (Negative) U Hyaline Cast (Auto) (0-2) /LPF Urine Microscopic RBC (0-5) /HPF Urine Microscopic WBC (0-5) /HPF Ur Epithelial Cells (None Seen) /HPF Urine Bacteria (None Seen) /HPF Urine Culture Reflexed (NO) Slides for Path Review Radiology Exams: Radiology Procedures Category Date Time Status MODIFIED BARIUM SWALLOW EXAM Routine Exams 06/21/24 16:28 Completed Multi-Disciplinary Progress Notes: Multi-Disciplinary Progress Notes 06/21/24 13:29 Mod Barium Swallow Note by Naren#[id number],Aurea Modified Barium Swallow Study ST Modified Barium Swallow Study Start: 06/21/24 12:02 Freq: Status: Active Protocol: Document 06/21/24 13:10 BM (Rec: 06/21/24 13:29 BM [id number]) E-Sign 06/21/24 13:10 BM Modified Barium Swallow Reason for Assessment Primary Diagnosis I69.30 - UNSPECIFIED SEQUELAE OF CEREBRAL INFARCTION Treatment Diagnosis #1 I69.391 - DYSPHAGIA FOLLOWING CEREBRAL INFARCTION Treatment Diagnosis #2 I69.320 - APHASIA FOLLOWING CEREBRAL INFARCTION Reason for Assessment PATIENT REFERRED FOR MBS STUDY FOLLOWING BEDSIDE CLINICAL SWALLOW EVALUATION COMPLETED 06/20/24. SEE REPORT. Onset Date 06/19/24 Date of Evaluation/SOC 06/21/24 Past Medical History Neurological History Stroke Endocrine History No Pertinent History Respiratory History COPD,Pneumonia,Other Cardiac History Arrhythmia,Congestive Heart Failure GI History [PCS.GI] No Pertinent History History Renal Disease Musculoskelatal History Osteoarthritis Pyscho-Social History Anxiety Past Surgical History Other Surgical History unknown surgery hx Pain Assessment Non-verbal signs & symptoms of pain No Pain Management: PATIENT WILL INDICATE PAIN, BUT HE DOES NOT DEMONSTRATE PAIN WITH SWALLOW. PATIENT GIVEN MORPHINE FOR PAIN PRIOR TO MBS STUDY. Modified Barium Swallow View This evaluation was completed to assess the functioning of the oral and pharyngeal phases of swallowing and to determine if the patient is aspirating or at risk for aspiration. Modified Barium Swallow View Lateral View Consistencies Assessed Barium trials included: Thin Liquid via Spoon,Thin Liquid via Cup,Thin Liquid via Straw,[place] Liquid via Spoon ,Thin Honey Liquid via spoon, Honey Liquid via Spoon,Pudding Liquid via spoon,Pureed Food, Paste on a Cookie Aspiration Risk Aspiration Observed No Amount of Aspiration Observed None Patient considered at risk of aspiration Yes during oral intake Patient is at risk for aspiration Before the swallow,During the swallow Severity of Aspiration Risk Mild Penetration into Laryngeal Vestibule Yes Penetration occured with Thin Liquid Reason for aspirational risk: PATIENT AT RISK FOR ASPIRATION BEFORE THE SWALLOW DUE TO PREMATURE SPILLAGE WITH DELAYED SWALLOW INITIATION WITH ALL CONSISTENCIES TRIALLED. PATIENT AT RISK FOR ASPIRATION DURING THE SWALLOW DUE TO LARYNGEAL VESTIBULE PENETRATION WITH THIN LIQUID BARIUM PRESENTED VIA TEASPOON AND CUP. 8-Point Penetration-Aspiration Scale ([place]osen[place]) 2.Material enters the airway,remains Yes above the vocal folds and IS ejected from the airway Consistency Thin Method of presentation Teaspoon,Cup Residue/Retention Residue Observed Valleculae Right,Valleculae Left,Tongue Base Esophageal Function No Impairment (WFL) Other UNABLE TO FULLY ASSESS ESOPHAGEAL FUNCTION DURING THIS MBS STUDY DUE TO MOVEMENT LIMITATIONS OF EQUIPMENT UTILIZED. NO APPARENT ESOPHAGEAL FUNCTION DIFFICULTIES DEMONSTRATED DURING THIS MBS STUDY. Assessment of Swallow Phases Oral Phase Labial Closure No Impairment (WFL) Bolus Formation Yes Bolus Control Pooling L/R No Impairment (WFL) Bolus Control under Tongue No Impairment (WFL) Bolus Control Scattered Loss No Impairment (WFL) Mastication Effectiveness No Impairment (WFL) A/P Bolus Propulsion No Impairment (WFL) Premature Spillage into: Valleculae A/P Lingual Propulsion Delay Mild Impairment A/P Lingual Propulsion Delay (sec) 2 Lingual Movement No Impairment (WFL) Residue Clearing/Sensitivity No Impairment (WFL) Aspiration No Swallow Initiation Delay Mild Impairment Swallow Delay Time (sec) 2 Other Oral Phase Observations PATIENT PRESENTS WITH DELAY IN SWALLOW INITIATION RESULTING IN PREMATURE SPILLAGE INTO VALLECULAE AND TO OPENING OF CRICOPHARYNGEOUS, SLIGHTLY BELOW OPENING TO LARYNGEAL VESTIBULE. SUFFICIENTLY CLEARED WITH SWALLOW COMPLETION. Pharyngeal Phase Base of Tongue Retraction No Impairment (WFL) Epiglottic Coverage No Impairment (WFL) Laryngeal Elevation No Impairment (WFL) Reduced Anterior Laryngeal Movement No Laryngeal Closure Mild Impairment Vallecular Retention Clearing No Impairment (WFL) Pharyn. Wall Residue Clearing No Impairment (WFL) Pyriform Sinus Retention No Impairment (WFL) Penetration Yes Aspiration No Cricopharyngeal Dysfunction No Cough None Other Pharyngeal Phase Observation PATIENT WITH MILD LARYNGEAL CLOSURE DEFICIT RESULTING IN LARYNGEAL VESTIBULE PENETRATION WITHOUT ASPIRATION WITH THIN LIQUID PRESENTED VIA CUP AND TEASPOON. THIS WAS N OT PRESENT WITH LARGER BOLUS SIZE OR THICKER CONSISTENCIES TRIALLED. Clinical Interpretation Clinical Interpretation PATIENT WITH MILD OROPHARYNGEAL DYSPHAGIA, R13. 12, WITHOUT ASPIRATION. Speech Therapy Teaching Record Teaching Summary Results/Recommendations Learning Preferences Discussion Barriers to Learning Cognitive/Verbal Readiness for Learning No Interest Teaching Methods Discussion Teaching Recipient Patient Response to Teaching Unable to return demo ST Recommendations Diet Consistency Mechanical Soft Liquid Consistency Regular Thin Follow-Up Primary Physician regarding findings/ Yes recommendations Safe Swallow Compensatory Strategies Compensatory Strategies Upright Position for all meals ,Remain upright after meals, Small bites and drinks, Alternate solids/liquids Medication Instructions Per Patient Preference Additional Comments: DISCUSSED RESULTS/ RECOMMENDATIONS WITH TECHNICIAN [employer] AND PATIENT'S NURSE. [facility]OMM[facility] SOFT DIET AND REGULAR THIN LIQUIDS. Signatures Speech Therapist Signature SANDHYA, MS, CCC/MEDIA RELATIONS INTERN Physician Signature DR Junie SAAVEDRA, RADIOLOGIST Initialized on 06/21/24 13:29 - END OF NOTE 06/21/24 13:10 Case Management Note by Karen Keyes NO CHANGE IN DC PLANS- PATIENT TO RETURN TO [facility] AT TIME OF DC CLINICAL UPDATE FAXED TO [facility] PER REQUEST Initialized on 06/21/24 13:10 - END OF NOTE 06/21/24 11:55 Physical Therapy Note by Kobe(L#[id number])Christa P.T. ORDER CANCELLED. SPOKE W/ NSG STAFF AT [facility] AND PT. IS SNF CARE IN FACILITY. [facility] IS USED FOR TRANSFERS AND SHOULD BE USED HERE IF NEEDS TO TRANSFER OUT OF BED. NO P.T. SKILL AT THIS TIME. Initialized on 06/21/24 11:55 - END OF NOTE Assessment/Plan (1) Dyspnea Current Visit: Yes Status: Acute Qualifiers: Dyspnea type: shortness of breath Qualified Code(s): R06.02 - Shortness of breath; R06.00 - Dyspnea, unspecified; R06.01 - Orthopnea Assessment & Plan: Assessment/Plan (1) Bacteremia Current Visit: Yes Status: Acute Assessment & Plan: -Blood cultures growing E Coli ESBL -Antibiotics changed to Merem -Procal is down (2) Dyspnea Current Visit: Yes Status: Acute Qualifiers: Dyspnea type: shortness of breath Qualified Code(s): R06.02 - Shortness of breath; R06.00 - Dyspnea, unspecified; R06.01 - Orthopnea Assessment & Plan: -Possible aspiration pneumonia -Procal is elevated and lactic acidosis -Cxray shows no infiltrates -Continue oxygen if needed (3) Acute respiratory failure with hypoxia Current Visit: Yes Status: Acute Assessment & Plan: -see dyspnea above -Oxygen as needed -possible aspiration pneumonia - continue abx (4) UTI (urinary tract infection) Current Visit: Yes Status: Acute Assessment & Plan: -UA suggests UTI continue doxy/cefepime -Lactic Acid reviewed 1.2<1.5<2.2 -Urine cultures negative but blood cultures grew E Coli ESBL -E Coli likely due to UTI (5) Aspiration pneumonia due to food (regurgitated) Assessment & Plan: -h/o feeding tube placement due to aspiration -Patient does not want G-tube replaced -Evaluated by ST -Mechanical soft diet recommended with liquids per straw (6) History of stroke with current residual effects Current Visit: Yes Status: Acute Assessment & Plan: -Expressive aphasia -Residual right hemiparesis and dysphagia -h/o feeding tube- pulled out multiple times- now removed indefinitely (7) History of COPD Current Visit: Yes Status: Acute Assessment & Plan: -CXR negative for acute findings -Supplemental oxygen with goal spo2 > 91% -RT to follow -Continue bronchodilators qid (8) History of CHF (congestive heart failure) Current Visit: Yes Status: Acute Assessment & Plan: -Euvolemic at present DVT Prophylaxis -Lovenox Code(s): R06.00 - DYSPNEA, UNSPECIFIED Telemedicine Encounter - Telemedicine Encounter Telemedicine Encounter: "The entirety of this encounter was performed via Telemedicine" This visit was performed using real-time audio and video connection between my location and thepatients locationwith the assistance of a surrogateat the patients location. Written or verbal consent was obtained from the patient/guardian to perform this visit usinggriff[facility] hospitalDelta Systems Engineeringcine technology. Any patient questions regarding the telemedicine interaction were answered.
--- NOTE | 2024-06-23 05:32 | PCM.NOTE ---
Date and Time: 06/23/24526 Subjective Assessment: is a 73 year old male with a pmhx of stroke (residual dysphagia/non- verbal), copd, chf, OA, and renal disease presented to ED from the nursing facility he resides at with dyspnea. Per nursing facility report patient had prior tube feedings but pulled out tube multiple times until POA decided to have it removed indefinitely. Patient has since been consuming a regular diet at the nursing facility. Upon arrival to ED patient was febrile with Tmax at 103.3, tachypneic, and hypoxic. Lab findings remarkable for UA suspicious for UTI, transaminitis, EMMA, and elevated procal at 23.6. Patient started on Cefepime and doxycycline. Admitted for possible aspiration pneumonia and UTI. Blood culture with ESBL EColi. Abx changed to Merrem. 06/23/24: Patient more alert and communicative. No complaints this morning. He is tolerating mechanical soft diet. Labs today showing hypokalemia and hypomagn esemia. Will replenish. Continue Merem. Consider discharge tomorrow to [place] if electrolytes are corrected. - Review of Systems All Other Systems: Unable due to condition Objective Exam General Appearance: no apparent distress Neurologic Exam: alert, oriented x 3, cooperative Skin Exam: normal color Eye Exam: PERRL Ears, Nose, Throat Exam: normal ENT inspection Neck Exam: normal inspection Respiratory Exam: normal breath sounds, lungs clear Cardiovascular Exam: regular rate/rhythm, normal heart sounds Gastrointestinal/Abdomen Exam: soft, normal bowel sounds Extremity Exam: limited range of motion Back Exam: normal inspection Male Genitalia Exam: deferred Rectal Exam: deferred Objective Data Vital Signs: Vital Signs - 24 hr Temp Pulse Resp BP Pulse Ox 06/23/24 04:00 99.3 F 103 H 17 148/84 94 L 06/23/24 00:00 98.7 F 94 H 16 154/95 97 06/22/24 20:00 97.7 F 69 17 181/94 98 06/22/24 19:53 96 06/22/24 19:34 113 H 16 96 06/22/24 16:00 98.1 F 53 L 20 171/79 99 06/22/24 12:00 96.5 F 92 H 20 157/89 99 06/22/24 07:26 50 L 16 94 L 06/22/24 07:20 96.8 F 61 20 170/80 95 Pain Assessment - Last Documented Pain Intensity 4 Pain Scale Used 0-10 Pain Scale Intake and Output: Intake & Output 06/20/24 06/21/24 06/22/24 06/23/24 11:59 11:59 11:59 11:59 Intake Total 184 1481 2575 240 Balance 184 1481 2575 240 Weight 72.6 kg Lab Results: Lab Results-Last 24 Hours 06/22/24 06/22/24 06/22/24 Range/Units 05:45 05:45 05:45 WBC 6.0 (4.23-9.07) x10^3/uL RBC 4.06 L (4.63-6.08) x10^6/uL Hgb 12.0 L (13.7-17.5) g/dL Hct 39.6 L (40.1-51.0) % MCV 97.5 H (79.0-92.2) fL MCH 29.6 (25.7-32.2) pg MCHC 30.3 L (32.3-36.5) g/dL RDW 14.6 H (11.6-14.4) % Plt Count 137 L (163-337) x10^3/uL MPV 12.1 (9.4-12.4) fL Gran % 72.6 H (34.0-67.9) % Immature Gran % (Auto) 0.5 H (0.001-0.429) % Nucleat RBC Rel Count 0.0 (0.00-0.2) % Eos # (Auto) 0.06 (0.04-0.54) x10^3/uL Immature Gran # (Auto) 0.03 (0.001-0.031) x10^3u/L Absolute Lymphs (auto) 0.98 L (1.32-3.57) x10^3/uL Absolute Monos (auto) 0.55 (0.30-0.82) x10^3/uL Absolute Nucleated RBC 0.00 (0.00-0.012) x10^3u/L Lymphocytes % 16.3 L (21.8-53.1) % Monocytes % 9.1 (5.3-12.2) % Eosinophils % 1.0 (0.8-7.0) % Basophils % 0.5 (0.2-1.2) % Absolute Granulocytes 4.37 (1.78-5.38) x10^3/uL Basophils # 0.03 (0.01-0.08) x10^3/uL Sodium 140 (135-145) mmol/L Potassium 3.4 L (3.5-5.1) mmol/L Chloride 107 (98-107) mmol/L Carbon Dioxide 27 (22-30) mmol/L Anion Gap 9.7 (5-15) MEQ/L BUN 17 (9-20) mg/dL Creatinine 0.81 (0.66-1.25) mg/dL Estimated GFR 92.5 ML/MIN Glucose 84 (74-106) mg/dL Calcium 8.4 (8.4-10.2) mg/dL Total Bilirubin 0.60 (0.2-1.3) mg/dL AST 26 (17-59) U/L ALT 33 (0-50) U/L Alkaline Phosphatase 108 (38-126) U/L Serum Total Protein 6.9 (6.3-8.2) g/dL Albumin 3.2 L (3.5-5.0) g/dL Procalcitonin 10.800 H* (0.030-0.080) ng/mL Slides for Path Review YES Radiology Exams: Radiology Procedures Category Date Time Status MODIFIED BARIUM SWALLOW EXAM Routine Exams 06/21/24 16:28 Completed Assessment/Plan (1) Bacteremia Current Visit: Yes Status: Acute Assessment & Plan: -Blood cultures x 2 pre-adam stain with gram negative rods - continue cefepime and doxy - follow culture -Procal 23.600 repeat 23.600 06/23: -Blood cult x 2 positive for ESBL Ecoli - abx changed to Merrem -Procal reviewed from 06/22 down to 10.8<23.6 Code(s): R78.81 - BACTEREMIA (2) Dyspnea Current Visit: Yes Status: Acute Qualifiers: Dyspnea type: shortness of breath Qualified Code(s): R06.02 - Shortness of breath; R06.00 - Dyspnea, unspecified; R06.01 - Orthopnea Assessment & Plan: -Possible aspiration pneumonia -Procal is elevated and lactic acidosis -Cxray reviewed and negative for acute etiology -WBC reviewed and wnl -Blood cultures with gram negative rods - final pending -consider CT chest -Supplemental oxygen as needed -Doxy and Cefepime started in ER - will continue 06/21: -Lung sounds clear - on RA Hypokalemia -Potassium reviewed at 3.0 - will replenish per potassium protocol Hypomagnesemia -Magnesium level reviewed at 1.5 - will replenish per magnesium protocol Code(s): R06.00 - DYSPNEA, UNSPECIFIED (3) Acute respiratory failure with hypoxia Current Visit: Yes Status: Acute Assessment & Plan: -see dyspnea above -Oxygen as needed -RT to follow -? aspiration pneumonia - continue abx Code(s): J96.01 - ACUTE RESPIRATORY FAILURE WITH HYPOXIA (4) UTI (urinary tract infection) Current Visit: Yes Status: Acute Assessment & Plan: -UA suggests UTI continue doxy/cefepime - follow cultures -NGTd -Lactic Acid reviewed 1.2<1.5<2.2 06/23: -Repeat UA negative for infection Code(s): N39.0 - URINARY TRACT INFECTION, SITE NOT SPECIFIED (5) Aspiration pneumonia due to food (regurgitated) Current Visit: Yes Status: Acute Qualifiers: Laterality: unspecified laterality Lung location: unspecified part of lung Qualified Code(s): J69.0 - Pneumonitis due to inhalation of food and vomit Assessment & Plan: -h/o feeding tube placement due to aspiration -has been removed due to pt taking it out multiple times -POA contacted awaiting call back -see dyspnea for plan -Pt currently NPO -Speech eval today for diet recommendations 06/21: -Plan for barium swallow and speech eval - recommendation for NPO until barium is completed -continue IVF 06/23: -Barium Swallow performed - discussed case with speech therapist - patient okay to resume mechanical soft diet and regular thin liquids Code(s): J69.0 - PNEUMONITIS DUE TO INHALATION OF FOOD AND VOMIT (6) History of stroke with current residual effects Current Visit: Yes Status: Acute Assessment & Plan: -Nonverbal -Residual right hemiparesis and dysphagia -h/o feeding tube- pulled out multiple times- now removed indefinitely 06/21: -Attempt communication board Code(s): I69.30 - UNSPECIFIED SEQUELAE OF CEREBRAL INFARCTION (7) History of COPD Current Visit: Yes Status: Acute Assessment & Plan: -CXR negative for acute findings -Supplemental oxygen with goal spo2 > 91% -RT to follow -Plan bronchodilators qid Code(s): Z87.09 - PERSONAL HISTORY OF OTHER DISEASES OF THE RESPIRATORY SYSTEM (8) History of CHF (congestive heart failure) Current Visit: Yes Status: Acute Assessment & Plan: -Euvolemic at present Code(s): R78.81 - BACTEREMIA Code(s): R78.81 - BACTEREMIA (2) Dyspnea Current Visit: Yes Status: Acute Qualifiers: Dyspnea type: shortness of breath Qualified Code(s): R06.02 - Shortness of breath; R06.00 - Dyspnea, unspecified; R06.01 - Orthopnea Code(s): R06.00 - DYSPNEA, UNSPECIFIED (3) Acute respiratory failure with hypoxia Current Visit: Yes Status: Acute Code(s): J96.01 - ACUTE RESPIRATORY FAILURE WITH HYPOXIA (4) UTI (urinary tract infection) Current Visit: Yes Status: Acute Code(s): N39.0 - URINARY TRACT INFECTION, SITE NOT SPECIFIED (5) Aspiration pneumonia due to food (regurgitated) Current Visit: Yes Status: Acute Qualifiers: Laterality: unspecified laterality Lung location: unspecified part of lung Qualified Code(s): J69.0 - Pneumonitis due to inhalation of food and vomit Code(s): J69.0 - PNEUMONITIS DUE TO INHALATION OF FOOD AND VOMIT (6) History of stroke with current residual effects Current Visit: Yes Status: Acute Code(s): I69.30 - UNSPECIFIED SEQUELAE OF CEREBRAL INFARCTION (7) History of COPD Current Visit: Yes Status: Acute Code(s): Z87.09 - PERSONAL HISTORY OF OTHER DISEASES OF THE RESPIRATORY SYSTEM (8) History of CHF (congestive heart failure) Current Visit: Yes Status: Acute Code(s): Z86.79 - PERSONAL HISTORY OF OTHER DISEASES OF THE CIRCULATORY SYSTEM (9) Hypokalemia Current Visit: Yes Status: Acute Code(s): E87.6 - HYPOKALEMIA (10) Hypomagnesemia Current Visit: Yes Status: Acute Code(s): E83.42 - HYPOMAGNESEMIA
[2024-06-23 07:24] LABS: Absolute Neutrophil Ct (ANC) 5.28 x10^3/uL (1.78-5.38); BASOPHIL % 0.3 % (0.2-1.2); Basophil (Absolute #) 0.02 x10^3/uL (0.01-0.08); Eosinophil % 1.5 % (0.8-7.0); Hematocrit 37.3 % (40.1-51.0); Hemoglobin 12.3 g/dL (13.7-17.5); IMMATURE GRAN # 0.04 x10^3u/L (0.001-0.031); IMMATURE GRAN % 0.6 % (0.001-0.429); Lymphocyte (Absolute #) 0.79 x10^3/uL (1.32-3.57); Lymphocytes % 11.5 % (21.8-53.1); Mean Cell Volume 91.6 fL (79.0-92.2); Mean Corpuscular Hemoglobin 30.2 pg (25.7-32.2); Mean Platelet Volume 12.1 fL (9.4-12.4); Monocyte (Absolute #) 0.65 x10^3/uL (0.30-0.82); Monocytes % 9.4 % (5.3-12.2); Neutrophil % 76.7 % (34.0-67.9); Platelet Count 159 x10^3/uL (163-337); Red Blood Count 4.07 x10^6/uL (4.63-6.08); White Blood Count 6.9 x10^3/uL (4.23-9.07)
[2024-06-23 07:42] LABS: ALBUMIN 3.2 g/dL (3.5-5.0); ANION GAP 7.5 MEQ/L (5-15); BILIRUBIN,TOTAL 0.7 mg/dL (0.2-1.3); Calcium 8.4 mg/dL (8.4-10.2); Creatinine 1 0.71 mg/dL (0.66-1.25); EST GLOMERULAR FILTRATION RATE 96.3 ML/MIN; Total Protein 6.9 g/dL (6.3-8.2)
[2024-06-23] MEDS: MAGNESIUM SULF 2 G/50 ML BAG 2 GM/50 ML PIGGYBACK IV ONE (10:05)
[2024-06-23] MEDS: POTASSIUM CHLORIDE 20 mEq IN WATER 100ML 100 ML IV SCH (11:27)
[2024-06-24 06:08] LABS: Absolute Neutrophil Ct (ANC) 5.29 x10^3/uL (1.78-5.38); BASOPHIL % 0.3 % (0.2-1.2); Basophil (Absolute #) 0.02 x10^3/uL (0.01-0.08); Eosinophil % 2.1 % (0.8-7.0); Eosinophil (Absolute #) 0.16 x10^3/uL (0.04-0.54); Hematocrit 36.6 % (40.1-51.0); Hemoglobin 11.8 g/dL (13.7-17.5); IMMATURE GRAN # 0.04 x10^3u/L (0.001-0.031); IMMATURE GRAN % 0.5 % (0.001-0.429); Lymphocytes % 14.7 % (21.8-53.1); Mean Cell Volume 91.5 fL (79.0-92.2); Mean Corpuscular Hemoglobin 29.5 pg (25.7-32.2); Mean Corpuscular Hgb Concent. 32.2 g/dL (32.3-36.5); Mean Platelet Volume 12.5 fL (9.4-12.4); Monocyte (Absolute #) 0.87 x10^3/uL (0.30-0.82); Monocytes % 11.6 % (5.3-12.2); Neutrophil % 70.8 % (34.0-67.9); Platelet Count 199 x10^3/uL (163-337); Red Cell Distribution Width 13.8 % (11.6-14.4); White Blood Count 7.5 x10^3/uL (4.23-9.07)
[2024-06-24 06:14] LABS: ALBUMIN 3.2 g/dL (3.5-5.0); ANION GAP 11.8 MEQ/L (5-15); BILIRUBIN,TOTAL 0.9 mg/dL (0.2-1.3); Calcium 8.5 mg/dL (8.4-10.2); Creatinine 1 0.78 mg/dL (0.66-1.25); EST GLOMERULAR FILTRATION RATE 93.6 ML/MIN; Potassium 3.3 mmol/L (3.5-5.1); Total Protein 6.8 g/dL (6.3-8.2)
[2024-06-24] MEDS: K-LYTE PO SCH (11:25)
[2024-06-24] MEDS: POTASSIUM CHLORIDE 20 mEq IN WATER 100ML 20 MEQ/100 ML BAG IV ONE (11:47)
--- NOTE | 2024-06-24 12:24 | PCM.DS ---
Discharge Summary Date of Admission: 06/19/24 09:55 Date of Discharge: 06/24/24 Admitting Physician: MAXINE MAHAN MD Primary Care Provider: NO FAMILY DOCTOR Allergies Allergies No Known Drug Allergies Allergy (Unverified 06/19/24 05:36) Hospital Summary - Hospital Course Hospital Course: 06/24/24 is a 73 year old male with a pmhx of stroke (residual dysphagia/non- verbal), COPD, CHF, OA, and renal disease. He presented to ED on 06/19/24 from the nursing facility on he resides at with dyspnea. Per nursing facility report patient had prior tube feedings but pulled out tube multiple times until POA decided to have it removed indefinitely. Patient has since been consuming a regular diet at the nursing facility. Upon arrival to ED patient was febrile with Tmax at 103.3, tachypneic, and hypoxic. Lab findings remarkable for UA suspicious for UTI, transaminitis, EMMA, and elevated procal at 23.6. Patient started on Cefepime and doxycycline. Admitted for possible aspiration pneumonia and UTI. Blood culture with ESBL EColi. Abx changed to Merrem. Labs overall improved. Lungs clear. While admitted pt had a barium swallow and placed on a mechanical soft diet with regular thin liquids per ST. Per nursing staff pt is not tolerating this and he s unable to swallow fluids. He is was only able to eat 2 bites of eggs today. If St is able to reeval pt today she can do so or this can be done at the alf by ST there. POA to come and speak with pt today. Midline to be placed for OP antibiotics. Will continue Merrem OP for 2 weeks for bacteremia. K+ 3.3 and replaced. Will recheck prior to d/c today. - Vitals & Intake/Output Vital Signs: Vital Signs Temperature 99.1 F 06/24/24 11:52 Pulse Rate 115 H 06/24/24 11:52 Respiratory Rate 17 06/24/24 11:52 Blood Pressure 155/103 06/24/24 11:52 O2 Sat by Pulse Oximetry 97 06/24/24 11:52 Intake & Output: Intake & Output 06/22/24 06/23/24 06/24/24 06/25/24 11:59 11:59 11:59 11:59 Intake Total 2575 544 710 Balance 2575 544 710 - Lab Result Diagrams: 06/24/24 05:30 06/24/24 16:35 Lab Results-Last 24 Hrs: Lab Results-Last 24 Hours 06/23/24 06/24/24 06/24/24 Range/Units 14:46 05:30 05:30 WBC 7.5 (4.23-9.07) x10^3/uL RBC 4.00 L (4.63-6.08) x10^6/uL Hgb 11.8 L (13.7-17.5) g/dL Hct 36.6 L (40.1-51.0) % MCV 91.5 (79.0-92.2) fL MCH 29.5 (25.7-32.2) pg MCHC 32.2 L (32.3-36.5) g/dL RDW 13.8 (11.6-14.4) % Plt Count 199 (163-337) x10^3/uL MPV 12.5 H (9.4-12.4) fL Gran % 70.8 H (34.0-67.9) % Immature Gran % (Auto) 0.5 H (0.001-0.429) % Nucleat RBC Rel Count 0.0 (0.00-0.2) % Eos # (Auto) 0.16 (0.04-0.54) x10^3/uL Immature Gran # (Auto) 0.04 H (0.001-0.031) x10^3u/L Absolute Lymphs (auto) 1.10 L (1.32-3.57) x10^3/uL Absolute Monos (auto) 0.87 H (0.30-0.82) x10^3/uL Absolute Nucleated RBC 0.00 (0.00-0.012) x10^3u/L Lymphocytes % 14.7 L (21.8-53.1) % Monocytes % 11.6 (5.3-12.2) % Eosinophils % 2.1 (0.8-7.0) % Basophils % 0.3 (0.2-1.2) % Absolute Granulocytes 5.29 (1.78-5.38) x10^3/uL Basophils # 0.02 (0.01-0.08) x10^3/uL Sodium 138 (135-145) mmol/L Potassium 3.5 3.3 L (3.5-5.1) mmol/L Chloride 103 (98-107) mmol/L Carbon Dioxide 27 (22-30) mmol/L Anion Gap 11.8 (5-15) MEQ/L BUN 13 (9-20) mg/dL Creatinine 0.78 (0.66-1.25) mg/dL Estimated GFR 93.6 ML/MIN Glucose 84 (74-106) mg/dL Calcium 8.5 (8.4-10.2) mg/dL Magnesium (1.6-2.3) mg/dL Total Bilirubin 0.90 (0.2-1.3) mg/dL AST 26 (17-59) U/L ALT 28 (0-50) U/L Alkaline Phosphatase 111 (38-126) U/L Serum Total Protein 6.8 (6.3-8.2) g/dL Albumin 3.2 L (3.5-5.0) g/dL 06/24/24 Range/Units 05:30 WBC (4.23-9.07) x10^3/uL RBC (4.63-6.08) x10^6/uL Hgb (13.7-17.5) g/dL Hct (40.1-51.0) % MCV (79.0-92.2) fL MCH (25.7-32.2) pg MCHC (32.3-36.5) g/dL RDW (11.6-14.4) % Plt Count (163-337) x10^3/uL MPV (9.4-12.4) fL Gran % (34.0-67.9) % Immature Gran % (Auto) (0.001-0.429) % Nucleat RBC Rel Count (0.00-0.2) % Eos # (Auto) (0.04-0.54) x10^3/uL Immature Gran # (Auto) (0.001-0.031) x10^3u/L Absolute Lymphs (auto) (1.32-3.57) x10^3/uL Absolute Monos (auto) (0.30-0.82) x10^3/uL Absolute Nucleated RBC (0.00-0.012) x10^3u/L Lymphocytes % (21.8-53.1) % Monocytes % (5.3-12.2) % Eosinophils % (0.8-7.0) % Basophils % (0.2-1.2) % Absolute Granulocytes (1.78-5.38) x10^3/uL Basophils # (0.01-0.08) x10^3/uL Sodium (135-145) mmol/L Potassium (3.5-5.1) mmol/L Chloride (98-107) mmol/L Carbon Dioxide (22-30) mmol/L Anion Gap (5-15) MEQ/L BUN (9-20) mg/dL Creatinine (0.66-1.25) mg/dL Estimated GFR ML/MIN Glucose (74-106) mg/dL Calcium (8.4-10.2) mg/dL Magnesium 1.8 (1.6-2.3) mg/dL Total Bilirubin (0.2-1.3) mg/dL AST (17-59) U/L ALT (0-50) U/L Alkaline Phosphatase (38-126) U/L Serum Total Protein (6.3-8.2) g/dL Albumin (3.5-5.0) g/dL Micro Results-Entire Visit: Microbiology 06/21/24 11:57 Urine Culture - Final Catherized NO GROWTH 06/19/24 06:22 Blood Culture Gram Stain - Final Blood Blood Culture - Final Escherichia Coli 06/19/24 06:14 Blood Culture Gram Stain - Final Blood Blood Culture - Final Escherichia Coli 06/19/24 15:48 Urine Culture - Final Urine, Void <10K NORMAL SKIN EDUARDO PROBABLE SKIN CONTAMINANT - Procedures and Test Procedures and Tests throughout Hospitalization: Therapy Orders & Screens 06/19/24 06:01 Respiratory Therapy Assessment DAILY Comment: 06/19/24 10:10 Oxygen Nasal Cannula 2 lpm Comment: Respiratory Therapy Consult ONCE Comment: Reason For Exam: 06/19/24 15:54 Respiratory Therapy Assessment DAILY Comment: Diagnosis: ASPIRATION PNEUMONIA 06/20/24 11:29 Speech Therapy Eval & Treat [ST Eval & Treat ( Order)] .as ordered Comment: Physician Instructions: Reason For Exam: Evaluate: Yes Treat: Yes Reason for Eval: aspiration pneumonia Diagnosis: ASPIRATION PNEUMONIA 06/24/24 10:58 Speech Therapy Eval & Treat [ST Eval & Treat (MD Order)] .as ordered Comment: Physician Instructions: Reason For Exam: Evaluate: Yes Treat: Yes Reason for Eval: swallowing difficulty, coughing, drooling Diagnosis: ASPIRATION PNEUMONIA Discharge Exam General Appearance: no apparent distress, alert Neurologic Exam: alert, cooperative, normal mood/affect, motor weakness, No motor deficits Eye Exam: PERRL, EOMI, eyes nml inspection Ears, Nose, Throat Exam: normal ENT inspection, pharynx normal, moist mucous membranes Neck Exam: normal inspection, non-tender, supple, full range of motion Respiratory Exam: normal breath sounds, lungs clear, No respiratory distress Cardiovascular Exam: regular rate/rhythm, normal heart sounds Gastrointestinal/Abdomen Exam: soft, No tenderness, No mass Male Genitalia Exam: deferred Rectal Exam: deferred Back Exam: normal inspection, normal range of motion, No CVA tenderness, No vertebral tenderness Extremity Exam: normal inspection, normal range of motion Skin Exam: normal color, warm, dry Final Diagnosis/Problem List - Final Discharge Diagnosis/Problem (1) Bacteremia Current Visit: Yes Status: Acute Assessment & Plan: - Blood cult x 2 positive for ESBL Ecoli - abx changed to Merrem on 06/22 - Will need 2 weeks of OP IV antibiotics - Midline ordered for OP antibiotics Code(s): R78.81 - BACTEREMIA (2) Aspiration pneumonia due to food (regurgitated) Current Visit: Yes Status: Acute Assessment & Plan: - h/o feeding tube placement due to aspiration -has been removed due to pt taking it out multiple times -POA contacted and coming in today - see dyspnea for plan - Barium Swallow performed - discussed case with speech therapist - patient okay to resume mechanical soft diet and regular thin liquids - Needs possible re-eval by Code(s): J69.0 - PNEUMONITIS DUE TO INHALATION OF FOOD AND VOMIT (3) Dyspnea Current Visit: Yes Status: Acute Assessment & Plan: - 2:2 aspiration pneumonia -Procal elevated and lactic acidosis -Cxray reviewed and negative for acute etiology -CBC reviewed -Blood cultures X2 + -Supplemental oxygen as needed - RA 97% -Doxy and Cefepime started in ER - Changed to Merrem on 06/22 Code(s): R06.00 - DYSPNEA, UNSPECIFIED (4) Acute respiratory failure with hypoxia Current Visit: Yes Status: Acute Assessment & Plan: -see dyspnea above -Oxygen as needed -RT to follow -? aspiration pneumonia - continue abx Code(s): J96.01 - ACUTE RESPIRATORY FAILURE WITH HYPOXIA (5) History of CHF (congestive heart failure) Current Visit: Yes Status: Chronic Assessment & Plan: - CXR reviewed- not in acute exacerbation - CBC, CMP reviewed Code(s): Z86.79 - PERSONAL HISTORY OF OTHER DISEASES OF THE CIRCULATORY SYSTEM (6) History of COPD Current Visit: Yes Status: Acute Assessment & Plan: -CXR negative for acute findings -Supplemental oxygen with goal spo2 > 91% -RT to follow -Plan bronchodilators qid Code(s): Z87.09 - PERSONAL HISTORY OF OTHER DISEASES OF THE RESPIRATORY SYSTEM (7) History of stroke with current residual effects Current Visit: Yes Status: Acute Code(s): I69.30 - UNSPECIFIED SEQUELAE OF CEREBRAL INFARCTION (8) Hypokalemia Current Visit: Yes Status: Acute Assessment & Plan: - K+ 3.3- replaced- resolved per repeat lab - K-rider infiltrated- med to be ordered by pharmacy Code(s): E87.6 - HYPOKALEMIA (9) Hypomagnesemia Current Visit: Yes Status: Acute Assessment & Plan: - resolved - Mg+ 1.8 Code(s): E83.42 - HYPOMAGNESEMIA (10) UTI (urinary tract infection) Current Visit: Yes Status: Resolved Assessment & Plan: - UC negative Code(s): N39.0 - URINARY TRACT INFECTION, SITE NOT SPECIFIED - Discharge Discharge Date: 06/24/24 (Envive) Disposition: XFER OTHER Condition: Fair Prescriptions: New Meropenem [Merrem] 1 gm IV Q8HT #39 iv piggy Continue polyethylene glycoL 3350 [Polyethylene Glycol 3350] 17 gr PO DAILY Ondansetron [Ondansetron Odt] 8 mg PO Q8HPRN PRN PRN Reason: Nausea Magnesium Hydroxide [Milk of Magnesia] 400 mg PO DAILY PRN PRN Reason: Constipation Metoprolol Tartrate 25 mg [Lopressor 25MG Tab] 25 mg PO BID Metoclopramide HCl 5 mg PO BID Melatonin 6 mg PO HS PRN PRN PRN Reason: Insomnia Magnesium Oxide 400 mg [Mag-Ox 400] 400 mg PO BID LORazepam [Lorazepam] 0.5 mg PO BID Loperamide HCl 2 mg [Imodium 2 mg] 2 mg PO UD PRN PRN Reason: Diarrhea Ketoconazole Cream [Nizoral CREAM] 1 applic TOP UD Gabapentin 600 mg PO TID Sodium Phosphate,Carson-Dibasic [Fleet Enema] 133 ml RC DAILY PRN PRN Reason: Constipation Emollient Combination No.119 [Eucerin Advanced Repair] 1 applic TP BID Docusate Sodium 100 mg [Docusate Sodium 100 MG] 100 mg PO BID Dantrolene Sodium 25 mg PO TID Butenafine HCl 1 applic TP DAILY Bisacodyl [Laxative Suppository] 10 mg RC DAILY PRN PRN Reason: Constipation Acetaminophen 500 mg [Tylenol Extra Strength 500 mg] 1,000 mg PO Q6HPRN PRN PRN Reason: Fever Acetaminophen 500 mg [Tylenol Extra Strength 500 mg] 1,000 mg PO Q6HPRN PRN PRN Reason: Pain Allopurinol 100 mg [Zyloprim 100 mg] 100 mg PO DAILY Tramadol HCl 50 mg [Ultram 50 mg] 50 mg PO Q8HPRN PRN PRN Reason: Pain Additional Instructions: [facility]DC ORDERS: ROUTINE PICC LINE CARE SEE RX FOR IV MERREM X 2 WEEKS FROM 06/22/24 SEE ATTACHED MED Follow up with: DOCTOR,NO FAMILY [Primary Care Provider] -
[2024-06-24] MEDS: HYLENEX 150 UNITS INJECTION SQ ONE (13:51)
[2024-06-24 17:08] VITALS: BP 136/99; PULSE 59; RESP 18; TEMP 100.3; O2SAT 94
== END 2024-06-24 18:16 | DRG 871 ==
LOC: ED 04:50 → OBSVTOIN 09:55 → MED SURG 09:55
PROVIDERS: ADMIT Internal Medicine; ATTEND Internal Medicine
DX: R78.81 Bacteremia (principal); J69.0 Pneumonitis due to inhalation of food and vomit; J96.01 Acute respiratory failure with hypoxia; N39.0 Urinary tract infection, site not specified; Z86.79 Personal history of other diseases of the circulatory system; J44.9 Chronic obstructive pulmonary disease, unspecified; I69.30 Unspecified sequelae of cerebral infarction; E87.6 Hypokalemia; E83.42 Hypomagnesemia; B96.20 Unspecified Escherichia coli [E. coli] as the cause of diseases classified elsewhere; R51.9 Headache, unspecified; Z79.899 Other long term (current) drug therapy
CPT/HCPCS: 0241U; 36415; 36600; 71045; 74230; 80053; 81001; 82375; 82803; 82947; 83036; 83605; 83735; 84132; 84145; 84484; 85025; 87040; 87077; 87086; 87186; 92610; 92611; 93005; 94640; 94760; 96360; 96374; 96375; 99291; Q3014; 99285; J0692; J1630; J1650; J2060; J2270; J2919; J3470; J3480; A9270-GY; J3475